=== PATIENT | female | born 1950 | race Caucasian/White ===

== ENCOUNTER 2017-04-21 08:58 | Inpatient (IN) ==
[2017-04-21] MEDS ORDERED: ASPIRIN ONE (09:23)
[2017-04-21] MEDS ORDERED: ASPIRIN PO ONE (09:27)
[2017-04-21 10:16] LABS: MANUAL DIFF NEEDED? NO
[2017-04-21 10:18] LABS: BASO% 0.3 % (0.0-0.8); EOS% 2.6 % (0.0-10.0); HEMATOCRIT 41.7 % (37.0-47.0); IMM GRAN# 0.02 X1000 (0.0-0.04); IMM GRAN% 0.2 % (0.0-0.5); LYMPH# 2.03 X1000 (1.2-3.4); LYMPH% 17.4 % (20.5-51.1); MCHC 33.6 g/dL (33-37); MCV 80.3 FL (81-99); MONO# 0.87 X1000 (0.11-0.59); MONO% 7.4 % (1.7-9.3); MPV 8.6 FL (7.4-10.4); NEUT% 72.1 % (42.2-75.2); PLT 355 X1000 (130-400); RBC 5.19 XMIL (4.2-5.4)
--- NOTE | 2017-04-21 10:29 | Diag Imaging Result Doc PS360 ---
EXAM: CHEST-2 VIEWS INDICATION: CP TECHNIQUE: 2 views COMPARISON: 06/13/2016 FINDINGS: The lungs are grossly clear. There is no discrete pleural fluid collection or pneumothorax. The cardiac silhouette is mildly prominent but stable. IMPRESSION: Mildly prominent cardiac silhouette but no definite acute pathology. Electronically signed by Ben Jaimes 04/21/2017 10:26 AM
[2017-04-21 10:30] LABS: INR 0.99; PROTIME 10.4 Seconds (9.2-11.7); PTT 27.6 Seconds (22.0-36.0)
[2017-04-21 10:32] LABS: AGAP 14; ALKALINE PHOSPHATASE 92 U/L (32-104); BUN 13 mg/dL (8-22); CALCIUM 9.2 mg/dL (8.8-10.2); CHLORIDE 94 mmol/L (98-107); CK PROFILE 32 U/L (24-173); COSMO 278; GOT 14 U/L (10-30); GPT 17 U/L (10-36); MAGNESIUM 1.7 mg/dL (1.5-2.7); POTASSIUM 4.3 mmol/L (3.5-5.1); SODIUM 134 mmol/L (136-145); TCO2 26 mmol/L (25-35); TOTAL BILIRUBIN 0.47 mg/dL (0.20-1.00); TOTAL PROTEIN 7.3 g/dL (6.3-8.3)
[2017-04-21] MEDS ORDERED: NITROGLYCERIN SL PRN (11:17)
[2017-04-21] MEDS ORDERED: MORPHINE IV PRN (11:17)
[2017-04-21] MEDS ORDERED: ZOFRAN IV PRN (12:59)
[2017-04-21] MEDS: NITROGLYCERIN TOP SCH ×2 (13:23→20:03)
[2017-04-21] MEDS: LOVENOX SUBQ SCH (13:39)
--- NOTE | 2017-04-21 17:03 | HISTORY AND PHYSICAL ---
PRIMARY CARE PROVIDER: Dr. Krishna Umana. PRIMARY CARDIOLOGISTS: Dr. Rodriguez. CHIEF COMPLAINT: Chest pain. HISTORY OF PRESENT ILLNESS: Ms. Norwood is a 66-year-old female with a medical history of obesity, diabetes mellitus type 2, hypertension, hypothyroidism, who states that about 6 or 6:30 this morning she woke up and was having midsternal chest pain that actually radiated to the right side and up the right side of her neck that eventually radiated to the left neck and into the jaw. She did have associated nausea and diaphoresis with this. She currently states that the pain is continuous at a 4/5 and feels more like soreness since this morning. She denies any shortness of breath. She also states that about a week ago. She had been treated for a sinus infection and yeast infection. Cardiac enzymes were negative. EKG does not show any ST elevations. Approximately 1 year ago she had presented with same complaints but eventually her cardiac enzymes did elevate and was sent to [facility] and received 2 coronary stents. She states that occasionally she does have this chest pain that comes and goes but not to the point of what it was this morning. She also states that she has been having a lot of insulin adjustments. According to her, her blood glucose goal is 120 but she has not ever been able to get it under 200. The reason for this is that her analytics lead says she has a bleed in the back part of her right eye that he associates with her diabetes. She states she is constantly nauseated and felt like maybe this morning it was because her blood glucose level was low but on check it was 266. Will admit to CICU, do cardiac enzymes, EKGs, and consult cardiology. PAST MEDICAL HISTORY: Coronary artery disease with an SD last year with 2 cardiac stents, falls, seasonal allergies, frequent sinus infections, diabetes mellitus type 2 that is uncontrolled, hypothyroidism, hypertension, cataracts, obstructive sleep apnea but does not wear CPAP. PAST SURGICAL HISTORY: Cardiac stents x2, hysterectomy, cholecystectomy, right knee scope, left hand tendon release, skin cancer removed off the right lip. SOCIAL HISTORY: Denies tobacco, alcohol, or illicit drug use. She states she has never used tobacco. She is retired, , lives at home with her . FAMILY HISTORY: Mother had pelvic cancer, melanoma, and diabetes. Father had lung cancer and hypertension. She had 1 brother with neuroblastoma and hypertension. She had 3 brothers with diabetes mellitus type 2. One brother with an acute SD. One son with diabetes mellitus type 2. REVIEW OF SYSTEMS: Fourteen point review of systems were complete. All were negative except for those mentioned in the above HPI. She has chest soreness and constant nausea. ALLERGIES: Codeine, iodine, and sulfa. HOME MEDICATIONS: Norvasc 10 mg p.o. daily, aspirin 81 mg p.o. daily, Lipitor 40 mg p.o. nightly, carvedilol 6.25 mg p.o. twice daily, vitamin D3 2000 units p.o. daily, cinnamon 500 mg p.o. daily, vitamin B12 1200 mcg p.o. daily, Lasix 40 mg p.o. twice daily, insulin 2 units subcutaneous daily p.r.n., Synthroid 125 mcg p.o. daily, Victoza 1.8 mg subcutaneous daily, Cozaar 100 mg p.o. daily, Effient 10 mg p.o. daily, spironolactone 25 mg. PHYSICAL EXAMINATION: VITAL SIGNS: Temperature is 98 degrees, heart rate 71, respiratory rate 18, blood pressure 155/65, O2 saturation 99% on 2 L nasal cannula, 5 foot 6 inches tall, 251 pounds , BMI is 40.6. GENERAL: Ms. Merary Norwood is a 66-year-old female. She is in no acute distress. She is able to answer questions appropriately. HEENT: Atraumatic, normocephalic. Pupils equal, round, reactive to light. Extraocular movements intact. Mucous membranes are dry. NECK: Trachea midline. CARDIOVASCULAR: S1, S2. Regular rate and rhythm. No rubs, gallops, murmurs. No JVD or carotid bruits noted. No lower extremity edema. She has +2 dorsalis and radial pulses. PULMONARY: Clear to auscultation. Bilateral breath sounds. No accessory muscle use or work of breathing noted. GI: Obese, soft, nontender, nondistended. EXTREMITIES: No lower extremity edema. She moves all extremities equally. NEUROLOGIC: A O x4. SKIN: Warm, dry, intact. LABORATORY DATA: White blood cells 11,000, hemoglobin 14, hematocrit 41, platelet count 355,000. INR 0.99. D-dimer 0.26. Sodium 134, potassium 4.3, BUN 13, creatinine 0.8, glucose 266, magnesium 1.7, bilirubin 0.47, AST 14, ALT 17. CK 32. Troponin less than 0.01. CRP 17.94. ProBNP 36. Albumin is 4.0. IMAGING: Chest x-ray: Mildly prominent cardiac silhouette but no definite acute pathology. ASSESSMENT AND PLAN: 1. Chest pain with a history of myocardial infarction and coronary artery disease. We will do nitroglycerin paste q.6 hours, serial cardiac enzymes daily, EKGs. Consult cardiology given patient's history and how she presented. 2. Diabetes mellitus type 2. We will do pattern blood glucoses and sliding scale insulin. 3. Hypertension. Continue home medications. 4. Hypothyroidism. Continue Synthroid. 5. Deep vein thrombosis prophylaxis. Lovenox. Patient seen and examined by me face to face, all the laboratory, images and vitals signs were reviewed, there is a possibility of acute coronary syndrome since she has DM, hypertension, and history of SD, no chest pain upon palpation on my physical exam, Cardiology will be consulted, will be placed on telemetry and will be admitted for further treatment and close monitoring, I agree with the assessment and plan, Rohit Ramirez MD Dictated by THNAIA Khoury for Rohit Beckford MD cc: THANIA Khoury MD [facility]
[2017-04-21] MEDS: HUMULIN R SUBQ SCH ×2 (17:28→20:04)
--- NOTE | 2017-04-21 18:00 | CONSULTATION ---
DATE OF CONSULTATION: 04/21/2017 CHIEF COMPLAINT: Chest pain. PRIMARY PHYSICIAN: Dr. Krishna Umana. IT INFRASTRUCTURE MANAGER: Dr. Derek Rodriguez. HISTORY: Ms. Norwood is a pleasant 66-year-old female who is known to me. She presented to the emergency room early this morning with complaints of sudden onset of chest pain that woke her up from her sleep at about 6 to 6:30 in the morning. The pain was intense, 9/10 in severity, nonradiating, associated with sweating and nausea. The pain went on for a little while and eventually, close to 10 o'clock, she decided to come to the emergency room. She was seen over there. They have done two electrocardiograms. Electrocardiogram is negative for acute ischemia. Two sets of troponin levels are negative. The patient's pain subsided after she was given sublingual nitroglycerin. Her CPK is also negative twice. The patient says that she had just finished 2 days ago a 1-week course of antibiotics for a urinary tract infection and sinus infection as well as Diflucan for the same purpose. She was told that she had a yesterday infection possibly in the urine. The patient says that over the course of months she had minor intermittent chest discomfort, however, nothing like this particular pain. In her mind this pain was exactly the same as what she experienced last year when she suffered a myocardial infarction. PAST MEDICAL HISTORY: Her past history is positive for acute myocardial infarction in May 2016. At that time the patient presented to this hospital with ST elevation in the precordial leads and she was sent to [place] where they found a tight proximal stenosis of the LAD which they successfully stented. The patient since then has been taking Effient and aspirin along with several other medications to optimize her cardiac status. She has been treated with cholesterol lowering medications. The patient was seen at my office last time in October of this year and back then she was generally doing better. She had some complain of puffiness of the legs. We put her on some diuretics and she has improved. Of note, her proBNP level today at the time of presentation was normal. Her BUN and creatinine were also normal. She has a remote history of Sjogren's syndrome. She has diabetes mellitus which is insulin requiring and has been very difficult to optimize. Dr. Umana has been working on it. She is morbidly obese. BMI is 40.6. She has lost 13 pounds since her last visit with me. She has sleep apnea which is obstructive, however, she has not been able to wear the CPAP mask. She has hypothyroidism. PAST SURGICAL HISTORY: Her surgical history is positive for skin cancer that has been removed, hysterectomy, cholecystectomy, left hand surgery, knee arthroscopy. SOCIAL HISTORY: She has 3 children. She is . Never been a smoker. Not a drinker. FAMILY HISTORY: Positive for coronary heart disease. REVIEW OF SYSTEMS: She has been more active lately than last year. She has no chronic pains. She has no issues with significant dyspnea. No palpitations or syncope. Lately she has been having lower abdominal pain since they changed her medications, specifically the insulin. She has not been in the hospital since her last heart attack in May of 2016. Other systems were checked and they were unremarkable. HOME MEDICATIONS: Her home medications at the time of this admission included: 1. Insulin NovoLog 2 units as needed sliding scale. 2. Vitamin D3 daily. 3. Prasugrel 10 mg daily. 4. Losartan 100 mg daily. 5. Synthroid 125 mcg daily. 6. Carvedilol 6.25 twice a day. 7. Aspirin 81 mg daily. 8. Amlodipine 10 mg daily. 9. Spironolactone 25 daily. 10.Victoza 1.8 subcutaneously daily. 11.Atorvastatin 40 mg at bedtime. ALLERGIES: Iodine dye, codeine, and sulfa drugs. PHYSICAL EXAMINATION: Vital signs: Blood pressure is 155/65, temperature 98 degrees, pulse 71,respirations 18. General: She is awake, alert, oriented, obese, in no distress. HEENT: Unremarkable. Chest: Fairly clear to auscultation and percussion. Cardiac: Heart sounds are regular and rhythmic. I do not hear any gallop or murmur. Abdomen: Obese, nontender. No masses or hepatomegaly. Extremities: Show good pulses. No peripheral edema. Neurologic: Follows commands, moves four extremities. LABORATORY DATA: Hemoglobin 14.0, white count 11,680, neutrophils 72%, lymphocytes 17%. Sodium 134, potassium 4.3, glucose 266. IMPRESSION: 1. Patient presenting with sudden onset of chest pain that is reminiscent of previous non Q wave myocardial infarction. Pain has resolved. Thus far there is no indication of acute ischemia on her either by EKG or laboratory work. 2. Single vessel coronary artery disease, proximal stenosis of left anterior descending, successfully stented in May of 2016. 3. Morbid obesity. 4. Diabetes mellitus type 2, insulin requiring. 5. History of hypertension. 6. Sleep apnea syndrome. 7. Recent urinary tract infection. 8. Recent yeast infection. RECOMMENDATIONS: I would suggest to obtain a followup echocardiogram and myocardial perfusion stress test. Based on those results, we will give further recommendations. At this time the patient is asymptomatic. She is feeling back to her normal self. Will follow her along. Thank you again for the opportunity to participate in her evaluation. cc: Derek Rodriguez MD
[2017-04-21] MEDS: LIPITOR PO SCH (20:03)
[2017-04-21] MEDS: LASIX PO SCH (20:03)
[2017-04-21] MEDS: COREG PO SCH (20:03)
[2017-04-21] MEDS ORDERED: COREG PO SCH (21:00)
[2017-04-21 21:51] LABS: URINE MICRO REVIEW NEEDED? NO; URINE SOURCE VOIDED
[2017-04-21 21:55] LABS: BILIRUBIN URINE NEGATIVE (NEGATIVE); BLOOD URINE NEGATIVE (NEGATIVE); COLOR YELLOW; GLUCOSE URINE 300 mg/dL (NEGATIVE); LEUKOCYTES URINE NEGATIVE (NEGATIVE); NITRITE URINE NEGATIVE (NEGATIVE); PH URINE 5.5; PROTEIN URINE TRACE mg/dL (NEGATIVE); SP GRAVITY URINE 1.007; TURBIDITY URINE CLEAR (CLEAR); UR EPITHELIAL CELLS <10 /HPF (<10); URINE BACTERIA NEGATIVE /HPF; URINE RBC <10 /HPF (<10); URINE WBC <10 /HPF (<10); UROBILINOGEN URINE NORMAL (NORMAL)
[2017-04-22] MEDS: NITROGLYCERIN TOP SCH ×4 (00:50→22:15)
[2017-04-22] MEDS: LOVENOX SUBQ SCH ×2 (00:50→13:09)
[2017-04-22] MEDS: TYLENOL PO PRN ×2 (00:56→22:12)
[2017-04-22 05:02] LABS: MANUAL DIFF NEEDED? NO
[2017-04-22 05:12] LABS: BASO% 0.3 % (0.0-0.8); EOS# 0.41 X1000 (0.0-0.7); EOS% 3.6 % (0.0-10.0); IMM GRAN# 0.03 X1000 (0.0-0.04); IMM GRAN% 0.3 % (0.0-0.5); LYMPH# 2.95 X1000 (1.2-3.4); LYMPH% 26.1 % (20.5-51.1); MCH 26.7 PG (27-31); MCHC 33.3 g/dL (33-37); MCV 80.2 FL (81-99); MONO# 0.91 X1000 (0.11-0.59); MONO% 8.1 % (1.7-9.3); MPV 8.5 FL (7.4-10.4); NEUT% 61.6 % (42.2-75.2); PLT 338 X1000 (130-400); RBC 4.86 XMIL (4.2-5.4)
[2017-04-22 05:15] LABS: INR 1.07; PROTIME 11.3 Seconds (9.2-11.7)
[2017-04-22 05:20] LABS: HEMOGLOBIN A1C 9.8 % (4.8-6.0)
[2017-04-22 05:24] LABS: ALBUMIN 3.7 g/dL (3.5-5.0); CALCIUM 8.9 mg/dL (8.8-10.2); MAGNESIUM 1.5 mg/dL (1.5-2.7); POTASSIUM 4.2 mmol/L (3.5-5.1); TOTAL BILIRUBIN 0.45 mg/dL (0.20-1.00); TOTAL PROTEIN 6.2 g/dL (6.3-8.3)
[2017-04-22 05:40] LABS: FREE T4 1.71 ng/dL (0.93-1.70)
--- NOTE | 2017-04-22 06:02 | EKG Report ---
Test Performed on : 04/21/2017 09:12:03 AM Test Reason : CP Blood Pressure : / mmHG Vent. Rate : 079 BPM Atrial Rate : 079 BPM P-R Int : 244 ms QRS Dur : 104 ms QT Int : 384 ms P-R-T Axes : 045 -14 019 degrees QTc Int : 440 ms Sinus rhythm. with 1st degree AV block. Otherwise normal ECG When compared with ECG of 14-JUN-2016 07:14, T wave inversion no longer evident in Anterolateral leads Unconfirmed Result
[2017-04-22] MEDS: PRILOSEC PO SCH (06:14)
[2017-04-22] MEDS: SYNTHROID PO SCH (06:14)
[2017-04-22] MEDS: HUMULIN R SUBQ SCH ×4 (06:14→22:13)
--- NOTE | 2017-04-22 07:35 | EKG Report ---
Test Performed on : 04/22/2017 06:52:49 AM Test Reason : CHEST PAIN/H/O STENT Blood Pressure : / mmHG Vent. Rate : 080 BPM Atrial Rate : 080 BPM P-R Int : 240 ms QRS Dur : 102 ms QT Int : 382 ms P-R-T Axes : 044 -21 033 degrees QTc Int : 440 ms Sinus rhythm. with 1st degree AV block. Otherwise normal ECG When compared with ECG of 21-APR-2017 09:12, (Unconfirmed) No significant change was found Confirmed by Cyrus JENKINS, Gaston Ayoub ([id number]) on 04/22/2017 5:00:37 PM
--- NOTE | 2017-04-22 07:44 | PROGRESS NOTE ---
DATE: 04/22/2017 CHIEF COMPLAINT: Chest pain. SUBJECTIVE: Ms. Norwood had an uneventful night. Her chest pain has resolved. She is feeling better this morning. She is about to have an echocardiogram. No shortness of breath. No syncope. Telemetry shows no arrhythmia. EKG done this morning shows sinus rhythm with first- degree AV block. No ST-T abnormalities. She has had a total of 4 troponin levels. All of them are negative. OBJECTIVE: Vital signs: Blood pressure 116/53. Temperature 98.1. Pulse 77. Respirations 16. General: The patient is obese, awake, alert, oriented, in no distress. HEENT: Unremarkable. Chest: Clear to auscultation and percussion. Cardiac: Heart sounds regular and rhythmic. No gallop or murmur. Abdomen: Obese, nontender. Extremities: Show good pulses. No edema. Neurologic: Follows commands. Moves four extremities. LABORATORY DATA: Hemoglobin 13.0, white count 11,300. C reactive protein is elevated slightly at 16.31. Hemoglobin A1c is elevated at 9.8, indicating poor control of diabetes. Her cholesterol level is actually good. It is 84. LDL is 36. HDL is 24. TSH is 1.74. Free T4 is minimally elevated at 1.71. Her proBNP was normal. IMPRESSION: 1. Patient who presented with chest pain that is somewhat atypical. This started after finishing a course of antibiotics and Diflucan for some sort of sinus infection and yeast infection. 2. History of myocardial infarction in May of 2016, non Q wave, with stent to LAD. 3. Morbid obesity. 4. Diabetes mellitus type 2. 5. Hypertension. 6. Hyperlipidemia. 7. Hypothyroidism. RECOMMENDATIONS: We will send the patient today for a stress test. Echocardiogram is being performed. Further advice will be forthcoming. Thank you for the opportunity to participate in her evaluation. cc: Derek Rodriguez MD
[2017-04-22] MEDS ORDERED: LEXISCAN ONE (08:52)
[2017-04-22] MEDS ORDERED: ALDACTONE PO SCH (09:00)
[2017-04-22] MEDS: PATIENT'S OWN MED PO SCH (11:15)
[2017-04-22] MEDS: COZAAR PO SCH (11:17)
[2017-04-22] MEDS: EFFIENT PO SCH (11:17)
[2017-04-22] MEDS: ASPIRIN PO SCH (11:17)
[2017-04-22] MEDS: VITAMIN B-12 PO SCH (11:18)
[2017-04-22] MEDS: VITAMIN D PO SCH (11:18)
[2017-04-22] MEDS: NORVASC PO SCH (11:18)
[2017-04-22] MEDS: VICTOZA SUBQ SCH (11:19)
[2017-04-22] MEDS: LASIX PO SCH ×2 (11:19→22:18)
[2017-04-22] MEDS: COREG PO SCH ×2 (11:19→22:16)
[2017-04-22] MEDS: CARAFATE LIQUID PO SCH ×3 (11:25→22:14)
--- NOTE | 2017-04-22 13:05 | ECHO REPORT ---
ORDER DATE: 04/22/2017 ECHOCARDIOGRAPHIC MEASUREMENTS: 1. Interventricular septum 1.0. 2. Left ventricular posterior wall 1.1. 3. Diastolic diameter 5.2. 4. Left atrium 4.0. 5. Aorta 3.6. 6. Technically suboptimal study. Poor acoustic window. 7. Normal left ventricular cavity size. Estimated ejection fraction of 65%. 8. Aortic valve leaflets trileaflet. 9. Pulmonic valve not well visualized. 10. Mitral valve was normal. 11. Tricuspid valve was normal. 12. Peak velocity across the aortic valve less than 2 m/sec. 13. There is no aortic stenosis or regurgitation. 14. There is mild mitral regurgitation. 15. Mild tricuspid regurgitation. 16. Peak velocity across the tricuspid valve was 1.3 m/sec. 17. Anterior echo-free space suggestive of pericardial fat pad was noted. There is no obvious pericardial effusion or obvious intracardiac mass or thrombus seen. cc: MD Derek Armendariz MD
[2017-04-22] MEDS: LANTUS SUBQ SCH (13:08)
[2017-04-22] MEDS ORDERED: INSULIN PEN NEEDLES ONE (13:08)
--- NOTE | 2017-04-22 14:44 | Diag Imaging Result Document ---
PROCEDURE NAME: MYOCARDIAL PERF SCAN, STR/REST - 04/22/2017 DESCRIPTION OF PROCEDURE: Lexiscan was infused per standard protocol. There was no chest pain. Baseline electrocardiogram revealed normal sinus rhythm. Low voltage complex first degree AV block. There was no chest pain. Stress electrocardiogram was negative for ischemia. Then 15.5 mCi of Cardiolite was injected for the rest phase, and 45.8 mCi of Cardiolite was injected for the stress phase. Gated SPECT images were obtained in standard views. Images revealed significant chest wall attenuation. There is no evidence of ischemia. There is low grade small size fixed defect in the left ventricular anteroseptal region, small size. This is probably secondary to attenuation defect, low probability of scar. Left ventricular ejection fraction is 69%. There is normal wall motion. CONCLUSIONS: 1. No chest pain. 2. Negative Lexiscan stress electrocardiogram. 3. Myocardial perfusion images revealed no evidence of ischemia. 4. There is a small size low grade fixed defect in the anteroseptal wall which is localized small size with significant chest wall attenuation and normal wall motion. This is likely to represent attenuation defect. Low probability of scar. 5. Left ventricular ejection fraction is 69%. cc: MD Derek Armendariz MD
[2017-04-22] MEDS: LIPITOR PO SCH (22:16)
[2017-04-23] MEDS: CARAFATE LIQUID PO SCH ×2 (02:37→09:21)
[2017-04-23] MEDS: LOVENOX SUBQ SCH (02:37)
[2017-04-23] MEDS: NITROGLYCERIN TOP SCH ×2 (02:37→09:22)
[2017-04-23] MEDS: SYNTHROID PO SCH (06:15)
[2017-04-23] MEDS: HUMULIN R SUBQ SCH ×2 (06:16→12:03)
[2017-04-23] MEDS: PRILOSEC PO SCH (06:16)
[2017-04-23 08:32] VITALS: BP 128/53
[2017-04-23] MEDS: LASIX PO SCH (09:20)
[2017-04-23] MEDS: COZAAR PO SCH (09:21)
[2017-04-23] MEDS: VITAMIN D PO SCH (09:21)
[2017-04-23] MEDS: COREG PO SCH (09:21)
[2017-04-23] MEDS: EFFIENT PO SCH (09:21)
[2017-04-23] MEDS: VITAMIN B-12 PO SCH (09:21)
[2017-04-23] MEDS: ASPIRIN PO SCH (09:21)
[2017-04-23] MEDS: LANTUS SUBQ SCH (09:22)
[2017-04-23] MEDS: NORVASC PO SCH (09:22)
[2017-04-23] MEDS: VICTOZA SUBQ SCH (09:23)
[2017-04-23] MEDS: PATIENT'S OWN MED PO SCH (09:23)
--- NOTE | 2017-04-23 11:34 | PROGRESS NOTE ---
DATE: 04/23/2017 CHIEF COMPLAINT: Chest pain. SUBJECTIVE: Ms. Norwood had an uneventful night. We reviewed her stress test yesterday. It basically showed no evidence of any inducible ischemia. She has a tiny anteroseptal defect, probably attenuation artifact versus tiny scar. Ejection fraction is 69%. A 2D echocardiogram which was also done yesterday showed normal left ventricular systolic function. No significant valvular abnormality. Her cardiac enzymes were all negative. Her lipid panel showed total cholesterol of 84, LDL is 36, HDL is 24, triglycerides 239. She had a slight elevation of C- reactive protein. OBJECTIVE: Today blood pressure is 134/43, temperature 98.4, pulse 73, respirations 21. She is awake, alert and oriented, no distress. HEENT is unremarkable. Chest: Clear to auscultation and percussion. Heart sounds are regular and rhythmic. No gallop or murmur. Abdomen: Obese, nontender. Extremities showed no edema. Neurologic: Follows commands. Moves all 4 extremities. IMPRESSION: 1. The patient presented with chest pain, somewhat atypical. She thought is was reminiscent of her non-Q-wave [place]; however, her cardiac testing is all negative. At this time, there are no EKG changes, no perfusion abnormalities to suspect ischemia. No wall motion abnormality on the echocardiogram. 2. The patient probably has gastroesophagitis from recent course of antibiotics and Diflucan. 3. Obesity. 4. Sleep apnea. 5. Diabetes mellitus. RECOMMENDATIONS: At this point in time, I think the patient may be discharged with instructions to continue to take her usual medications. I would add sucralfate to her regimen to protect the esophagus and stomach. I will arrange for a followup with me in 1 month. Thank you for the opportunity to participate in her evaluation. cc: Derek Rodriguez MD
--- NOTE | 2017-04-26 12:09 | DISCHARGE SUMMARY ---
ADMISSION DATE: 04/21/2017 DISCHARGE DATE: 04/23/2017 FINAL DISCHARGE DIAGNOSES: 1. Atypical chest pain. 2. Gastroesophageal reflux disease. 3. Morbid obesity. 4. Hypertension. 5. Coronary artery disease. 6. History of myocardial infarction. 7. Hypothyroidism. 8. Obstructive sleep apnea. CONSULTATIONS REQUESTED DURING THIS HOSPITAL STAY: Cardiology consultation with Dr. Rodriguez. HOSPITAL COURSE: Ms. Norwood is a 66-year-old female with a history of multiple medical problems, who presented to the ER with a chief complaint of chest pain. Given the patient's cardiac history, she was admitted to the hospitalist service, and cardiology was consulted. Serial troponins were done, which were noted to be negative. Also a 2-dimensional echocardiogram was done that was noted to be unremarkable. The patient also had a myocardial perfusion scan done that was unremarkable. It was thought that the patient's chest pain was secondary to reflux, and the patient was given a prescription for Carafate and Protonix. The patient was noted to have poorly-controlled diabetes and was started on Lantus 20 units twice a day. The patient continued to improve clinically and was cleared for discharge home. DISCHARGE MEDICATIONS: 1. Lantus 20 units subcutaneous twice a day. 2. Carafate 1 g p.o. every 6 hours. 3. Omeprazole 40 mg p.o. daily. 4. Aspirin 81 mg p.o. daily. 5. Norvasc 10 mg p.o. daily. 6. Losartan 100 mg p.o. daily. 7. Synthroid 125 mcg p.o. daily. 8. Vitamin B12 1200 mcg oral daily. 9. Vitamin D3 one capsule oral daily. 10. NovoLog sliding scale. 11. Lasix 40 mg p.o. twice a day. 12. Lipitor 40 mg p.o. at bedtime. 13. Coreg 6.25 mg p.o. twice a day. 14. Effient 10 mg p.o. daily. 15. Aldactone 25 mg p.o. daily. DISCHARGE DIET: 1800 ADA diet, low-sodium diet. ACTIVITY: As tolerated. FOLLOWUP INSTRUCTIONS: The patient has been advised to follow up with Dr. Pool in 1-2 weeks. cc: MD Krishna De Los Santos DO
--- NOTE | 2017-05-10 13:31 | PROVIDER DOCUMENTATION ---
This chart was entered by Ileana Singleton Scribe, acting as scribe for Luis Manuel Maynard MD. HPI-Chest Pain - General Chief Complaint: Chest Pain Stated Complaint: CP, NAUSEA Time Seen by Provider: 04/21/17 09:25 Source: patient Allergies/Adverse Reactions: Patient Allergies Allergy/AdvReac Type Severity Reaction Status Date / Time codeine AdvReac Unknown Verified 04/21/17 09:40 iodine AdvReac Unknown Verified 04/21/17 09:40 Sulfa (Sulfonamide AdvReac Unknown Verified 04/21/17 09:40 Antibiotics) Home Medications: Home Medication List Medication Instructions Recorded Confirmed Last Taken Type Amlodipine Besylate [Norvasc] 10 mg PO DAILY 06/13/16 04/21/17 04/20/17 History Aspirin 81 mg PO DAILY 06/13/16 04/21/17 04/20/17 History Levothyroxine [Synthroid] 125 microgm PO DAILY 06/13/16 04/21/17 04/20/17 History Losartan Potassium [Cozaar] 100 mg PO DAILY 06/13/16 04/21/17 04/21/17 History ATORVAstatin [Lipitor] 40 mg PO QHS 08/10/16 04/21/17 04/20/17 History Carvedilol 6.25 mg PO BID 08/10/16 04/21/17 04/21/17 History Cholecalciferol (Vitamin D3) 1 cap PO DAILY 08/10/16 04/21/17 Unknown History [D3-2000] Cinnamon Bark [Cinnamon] 1 cap PO DAILY 08/10/16 04/21/17 Unknown History Cyanocobalamin (Vitamin B-12) 1,200 mcg PO DAILY 08/10/16 04/21/17 Unknown History [Vitamin B12] Furosemide [Lasix] 40 mg PO BID 08/10/16 04/21/17 Unknown History Insulin Aspart [Novolog Flexpen] 2 units SQ DAILY PRN 08/10/16 08/10/16 History Liraglutide [Victoza] 1.8 mg SUBQ DAILY 04/21/17 04/21/17 04/21/17 History Prasugrel [Effient] 10 mg PO DAILY 04/21/17 04/21/17 04/21/17 History Spironolactone 25 mg PO DIRECTED 04/21/17 04/21/17 04/20/17 History - History of Present Illness-CP Nature of Presenting Problem: Pt is a 66 y/o F presents to the ED with chest pain. Pt states chest pain started this am. Pt states pain feels like her last [place]. Pt states having a [place] in 2016 with 2 stents placed. Pt states she takes aspirin and blood thinner. Pt denies SOB. Location: reports: central Chest Pain Radiation: reports: no radiation Quality of Pain: reports: pressure Severity in ED: mild Onset/Duration: this morning Timing: still present Context/Activities at Onset: reports: light activity Modifying Factors: improves with: nothing Associated Symptoms: reports: denies symptoms Nitro Today/Relief: no nitro taken today Aspirin Treatment Today: 81 mg x 1, provided at home Prior Chest Pain/Cardiac Workup: reports: echocardiography, heart attack Similar Symptoms Previously?: No Recently Seen Here or By Another Healthcare Provider: Yes Review of Systems - Adult - REVIEW OF SYSTEMS - ADULT Constitutional: reports: no symptoms reported Eyes: reports: no symptoms reported Ears, Nose, Mouth & Throat: reports: no symptoms reported Cardiovascular: reports: chest pain. denies: heart murmur, irregular heart rate Respiratory: reports: no symptoms reported Gastrointestinal: reports: no symptoms reported Genitourinary: reports: no symptoms reported Musculoskeletal: reports: no symptoms reported Integumentary: reports: no symptoms reported Neurological: reports: no symptoms reported Psychiatric: reports: no symptoms reported Endocrine: reports: no symptoms reported Hematologic/Lymphatic: reports: no symptoms reported Allergic/Immunologic: reports: no symptoms reported All Other Systems: Reviewed and Negative Past History - Adult - PAST MEDICAL HISTORY-ADULT Review of Records: reports: Nursing Assessment Review, Medications Reviewed, Social history reviewed & non-contributory. Major Childhood Illnesses: reports: denies history Cardiovascular: reports: HTN, hyperlipidemia, [place] Respiratory: reports: asthma, sleep apnea Gastrointestinal: reports: GERD Obstetrical/Gynecological: reports: denies history Genitourinary: reports: denies history Musculoskeletal: reports: denies history Neurological: reports: denies history Endocrine/Immune: reports: Diabetes, thyroid disorder Diabetes Type: Type 2 Other Conditions: reports: denies history - PRIOR SURGERIES/PROCEDURES Surgical/Procedure History: reports: cholecystectomy, hysterectomy - IMMUNIZATION STATUS Childhood Immunizations: See Nurse Assessment Flu Vaccine: See Nurse Assessment - FAMILY HISTORY Family History: reviewed, not pertinent - SOCIAL HISTORY Smoking: denies Substance Use: denies Living Situation: family Physical Exam-General - PHYSICAL EXAM-ADULT Initial Vital Signs Reviewed: Yes - CONSTITUTIONAL General Appearance: appears well, alert. negative: lethargic, slow to respond - EYES Eyes: PERRL/EOMI. negative: pale conjunctivae, sunken eyes - HEAD, EARS, NOSE, MOUTH & THROAT HENMT: normocephalic/atraumatic, moist mucous membranes. negative: angioedema, hearing deficit - NECK Neck: normal inspection. negative: lymphadenopathy, tender lateral - RESPIRATORY Respiratory: lungs clear, normal breath sounds, other (chest tenderness with palpation). negative: crackles, rhonchi - CARDIOVASCULAR Cardiovascular: regular rate, rhythm. negative: tachycardia, systolic murmur - GASTROINTESTINAL (ABDOMEN) Abdominal Exam: normal bowel sounds, non tender, soft. negative: guarding, rebound - LYMPHATIC Lymphatic: no adenopathy. negative: enlargement, streaking - MUSCULOSKELETAL Back Exam: normal inspection. negative: ecchymosis, vertebral tenderness Extremity: normal range of motion, normal inspection. negative: deformity, erythema, tenderness - SKIN Integumentary: normal color, normal turgor, warm/dry. negative: diaphoresis, ecchymosis, erythema, laceration(s), rash - NEUROLOGIC Neurologic: grossly normal. negative: aphasia, facial droop - PSYCHIATRIC Psych/Mental Status: normal mood/affect, oriented x 3. negative: paranoid, tearful Progress - PLAN OF CARE/RESULTS Progress/Plan/Lab Results: Vital Signs - 8 hr 04/21/17 09:08 Temperature 98.2 F Pulse Rate 78 Respiratory Rate 20 Blood Pressure 160/68 O2 Sat by Pulse Oximetry 99 Laboratory Results - last 24 hr 04/21/17 04/21/17 04/21/17 09:30 09:30 09:30 WBC 11.68 H RBC 5.19 Hgb 14.0 Hct 41.7 MCV 80.3 L MCH 27.0 MCHC 33.6 RDW Std Deviation 14.1 Plt Count 355 MPV 8.6 Immature Gran % (Auto) 0.2 Neut % (Auto) 72.1 Lymph % (Auto) 17.4 L [place] % (Auto) 7.4 Eos % (Auto) 2.6 Baso % (Auto) 0.3 Immature Gran # (Auto) 0.02 Neut # (Auto) 8.42 H Lymph # (Auto) 2.03 [place] # (Auto) 0.87 H Eos # (Auto) 0.30 Baso # (Auto) 0.04 PT INR PTT (Actin FS) D-Dimer 0.26 Sodium 134 L Potassium 4.3 Chloride 94 L Carbon Dioxide 26 Anion Gap 14 BUN 13 Creatinine 0.8 Estimated GFR/1.73 m2 > 60 BUN/Creatinine Ratio 16 Glucose 266 H Calculated Osmolality 278 Calcium 9.2 Magnesium 1.7 Total Bilirubin 0.47 AST 14 ALT 17 Alkaline Phosphatase 92 Creatine Kinase 32 Troponin T Iyb-D-Oelxlyflpcl Pept Total Protein 7.3 Albumin 4.0 Globulin 3.3 Albumin/Globulin Ratio 1.2 04/21/17 04/21/17 04/21/17 09:30 09:30 09:30 WBC RBC Hgb Hct MCV MCH MCHC RDW Std Deviation Plt Count MPV Immature Gran % (Auto) Neut % (Auto) Lymph % (Auto) [place] % (Auto) Eos % (Auto) Baso % (Auto) Immature Gran # (Auto) Neut # (Auto) Lymph # (Auto) [place] # (Auto) Eos # (Auto) Baso # (Auto) PT 10.4 INR 0.99 PTT (Actin FS) 27.6 D-Dimer Sodium Potassium Chloride Carbon Dioxide Anion Gap BUN Creatinine Estimated GFR/1.73 m2 BUN/Creatinine Ratio Glucose Calculated Osmolality Calcium Magnesium Total Bilirubin AST ALT Alkaline Phosphatase Creatine Kinase Troponin T < 0.010 Xho-Q-Yovwlifcpss Pept 36 Total Protein Albumin Globulin Albumin/Globulin Ratio Orders Category Date Time Status Cardiac Monitoring DIRECTED Care 04/21/17 09:53 Active Saline Loc NOW Care 04/21/17 09:53 Active CHEST-2 VIEWS [RAD] Stat Exams 04/21/17 09:53 Completed CBC WITH ELECTRONIC DIFF [HEME] Stat Lab 04/21/17 09:30 Completed CK PROFILE [SP CHEM] Stat Lab 04/21/17 09:30 Completed COMPREHENSIVE METABOLIC PANEL [CHEM] Stat Lab 04/21/17 09:30 Completed D-DIMER [CHEM] Stat Lab 04/21/17 09:30 Completed MAGNESIUM [CHEM] Stat Lab 04/21/17 09:30 Completed PRO B-NATRIURETIC PEPTIDE Stat Lab 04/21/17 09:30 Completed PROTIME WITH INR [COAG] Stat Lab 04/21/17 09:30 Completed PTT [COAG] Stat Lab 04/21/17 09:30 Completed TROPONIN T Stat Lab 04/21/17 09:30 Completed Aspirin Med 04/21/17 09:23 Discontinued 243 mg .ROUTE .STK-MED ONE Aspirin Med 04/21/17 09:27 Discontinued 81 mg PO NOW ONE EKG [EKG] Stat Ther 04/21/17 09:53 Ordered Result Diagrams: 04/21/17 09:30 04/21/17 09:30 - EKG 1 Time of EKG reading by physician:: 09:12 EKG Read and Signed by:: Frank Maynard EKG Interpretation (*Must complete 3 of following elements*): Abnormal Rate: 79 Rhythm: sinus rhythm with 1st degree AV block Comments: otherwise normal ECG - XRAY 1 XRAY Study: Chest Impression: Abnormal (Mildly prominent cardiac silhouette but no definite acute pathology) - CONSULTS/PCP/HOSPITALIST Notification #1 *Consult/PCP/Hospitalist*: THANIA Parker for Hospitalist Time Discussed: 10:59 (Dr. Morgan accepted PT ) Reason/Comments: Dr. Maynard consulted with LUIS ENRIQUE Parker about PT Consult Disposition: Admit Departure - Departure Date of Disposition Decision: 04/21/17 Time of Disposition Decision: 10:59 DIAGNOSIS: Unstable angina Disposition: ADMITTED INPATIENT 09 Certified Medical Emergency: Emergent Condition: Stable Referrals and Follow-Ups: Krishna Umana DO [Primary Care Provider] - - Critical Care Note This patient required my direct & personal management of CC.: No Attestation - Physician/ WALTER Attestation Patient care was provided by Advanced Practice Provider:: No The physician spent face to face time with patient:: Yes Advanced Practice Provider documentation review:: Supervising physician onsite and consulted in the evaluation and care of this patient. The physician did have a face to face encounter with the patient. This chart was documented by the indicated scribe, (Ileana Singleton Scribe) and accurately reflects the services I performed and decisions made by Caesar sol Tom-Meka M., MD, as attested by the provider's signature.
== END 2017-04-23 12:10 | disposition home or self-care (01) ==
LOC: ED 08:58 → SUATTDRO 08:59 → 3S 08:59 → 3N 04-22 18:40
PROVIDERS: ATTEND Internal Medicine

== ENCOUNTER 2018-10-01 14:20 | Inpatient (IN) ==
[2018-10-01] MEDS ORDERED: VANCOMYCIN IV PER PHARMACY MISC SCH (18:00)
[2018-10-01] MEDS ORDERED: D50W SYRINGE IV PRN (18:00)
[2018-10-01] MEDS ORDERED: TYLENOL PO PRN (18:44)
--- NOTE | 2018-10-01 19:00 | Diag Imaging Result Doc PS360 ---
CT ABDOMEN/PELVIS W/O CONTRAST - 10/01/2018 INDICATION: abd.pain COMPARISON: 07/19/2017 FINDINGS: There is hazy atelectasis or edema in the lung bases, nonspecific. Heart size is normal with no pericardial effusion. There is some body wall edema. There are cholecystectomy clips. No radiodense renal stones. No hydronephrosis or hydroureter. No bowel obstruction or inflammation. There has been a slight increase in size of a simple appearing cyst at the left adnexal region. This measures 4.6 cm in maximum length, previously measuring 3.1 cm. Urinary bladder and rectum are normal. There are moderate degenerative changes of the spine. No acute or suspicious bony lesion. IMPRESSION: 1. Hazy atelectasis or pulmonary edema in the lung bases. 2. Increase in size of a simple appearing left adnexal cyst now measuring 4.6 cm. This exam was performed using automated exposure control, adjustment of mA or kV according to patient size, and/or use of iterative reconstruction technique Electronically signed by Adalid Correa 10/01/2018 6:58 PM
[2018-10-01 19:03] LABS: URINE SOURCE CLEAN CATCH
[2018-10-01 19:08] LABS: BILIRUBIN URINE NEGATIVE (NEGATIVE); BLOOD URINE TRACE (NEGATIVE); COLOR YELLOW; GLUCOSE URINE NEGATIVE (NEGATIVE); KETONE URINE NEGATIVE (NEGATIVE); LEUKOCYTES URINE NEGATIVE (NEGATIVE); NITRITE URINE NEGATIVE (NEGATIVE); PH URINE 6.5; PROTEIN URINE 600 mg/dL (NEGATIVE); SP GRAVITY URINE 1.012; TURBIDITY URINE CLEAR (CLEAR); UR EPITHELIAL CELLS <10 /HPF (<10); URINE BACTERIA NEGATIVE /HPF; URINE RBC <10 /HPF (<10); URINE WBC <10 /HPF (<10); UROBILINOGEN URINE NORMAL (NORMAL)
--- NOTE | 2018-10-01 19:08 | Diag Imaging Result Doc PS360 ---
CHEST-2 VIEWS - 10/01/2018 INDICATION: SOB COMPARISON: 08/06/2018 FINDINGS: Stable linear atelectasis in the left lung base. No infiltrates or edema. Heart size and pulmonary vascularity are top normal. IMPRESSION: Minimal atelectasis in the left lung base. Electronically signed by Adalid Correa 10/01/2018 7:06 PM
[2018-10-01 19:14] LABS: ALLEN TEST YES; BE 5.1 mmoll (-3.0-3.0); BLOOD TYPE ARTERIAL; HCO3-(ACT) 28.9 mmoll (20.0-26.0); METHB 0.7 % (0.0-1.5); MODALITY ROOM AIR; O2(CT) 16.7 mL/dL (15.0-23.0); O2HB 95.9 % (95.0-99.0); PCO2(98.6) 44 mmHg (35-45); PO2(98.6) 81 mmHg (60-100); SAMPLE BLOOD; SAO2 98.3 % (95.0-100.0); THB 12.3 g/dL (11.5-17.4); pH(98.6) 7.44 (7.35-7.45)
[2018-10-01 19:34] LABS: BASO# 0.03 X1000 (0.0-0.2); BASO% 0.2 % (0.0-0.8); EOS# 0.22 X1000 (0.0-0.7); EOS% 1.8 % (0.0-10.0); IMM GRAN# 0.04 X1000 (0.0-0.04); IMM GRAN% 0.3 % (0.0-0.5); LYMPH# 1.39 X1000 (1.2-3.4); LYMPH% 11.4 % (20.5-51.1); MCH 24.3 PG (27-31); MCHC 31.6 g/dL (33-37); MCV 77.1 FL (81-99); MONO# 0.99 X1000 (0.11-0.59); MONO% 8.1 % (1.7-9.3); MPV 8.5 FL (7.4-10.4); NEUT# 9.52 X1000 (1.4-6.5); NEUT% 78.2 % (42.2-75.2); PLT 363 X1000 (130-400); RBC 4.93 XMIL (4.2-5.4); RDW 15.5 % (11.5-14.5); WBC 12.19 X1000 (4.8-10.8)
[2018-10-01 19:41] LABS: INR 0.98; PROTIME 13.8 Seconds (11.0-16.0)
[2018-10-01 19:42] LABS: PTT 33.5 Seconds (22.3-41.8)
[2018-10-01] MEDS ORDERED: VANCOMYCIN 2.5 GM in NS 500 ML IV ONE (20:00)
[2018-10-01 20:17] LABS: HEMOGLOBIN A1C 8.2 % (4.8-6.0)
[2018-10-01 20:20] LABS: AGAP 12; ALB/GLOB RATIO 0.9; ALBUMIN 3.1 g/dL (3.5-5.0); ALKALINE PHOSPHATASE 89 U/L (32-104); AMYLASE 22 U/L (20-200); BUN 18 mg/dL (8-22); CALCIUM 9.2 mg/dL (8.8-10.2); CHLORIDE 100 mmol/L (98-107); CK PROFILE 31 U/L (24-173); COSMO 282; CREATININE 0.8 mg/dL (0.5-0.9); ESTIMATED GFR > 60; GLUCOSE 152 mg/dL (70-104); GOT 9 U/L (10-30); GPT 11 U/L (10-36); LIPASE 13 U/L (13-60); POTASSIUM 4.1 mmol/L (3.5-5.1); SODIUM 139 mmol/L (136-145); TCO2 27 mmol/L (25-35); TOTAL BILIRUBIN 0.24 mg/dL (0.20-1.00); TOTAL PROTEIN 6.7 g/dL (6.3-8.3)
[2018-10-01] MEDS: ZOSYN 3.375 GM in NS 50 ML IV SCH (20:41)
[2018-10-01] MEDS: LASIX IV SCH (20:47)
[2018-10-01] MEDS: COREG PO SCH (20:47)
[2018-10-01] MEDS ORDERED: BASAGLAR SUBQ SCH (21:00)
[2018-10-01] MEDS: BASAGLAR SUBQ SCH (21:04)
[2018-10-01] MEDS: PROTONIX IV SCH (21:04)
--- NOTE | 2018-10-01 21:05 | HISTORY AND PHYSICAL ---
CHIEF COMPLAINT: Confusion, chest congestion, cough, not responding to outpatient treatment. HISTORY OF PRESENT ILLNESS: Ms. Norwood is a 67-year-old white female patient, not doing well lately. According to patient and daughter, the patient is sick for over a week with chest congestion, cough, scanty sputum production, sinus drainage, sinus pressure, fluctuating blood sugar. I evaluated the patient a few days ago in the office. I did blood work. The patient had leukocytosis. I started patient on doxycycline. The patient was tolerating medication well, but patient was not getting better. She did have a headache, sinus congestion, chest congestion, cough with expectoration. The patient was getting short of breath very easily. The patient did have swelling of the legs and abdominal wall. She was getting short of breath easily. Daughter was concerned. The patient did have periods where she was more confused and disoriented. According to daughter, her motor skill was getting weaker. The patient had a few falls at home. They were questioning whether the patient is taking her medicine regularly or not. The patient was brought back to my office. The patient was getting frustrated at times. I evaluated the patient. The patient had a hard time getting onto examination table. Her blood sugar was fluctuating. No diarrhea. The patient did have polyuria, polydipsia. She had a hard time controlling her bladder, unquantified weight gain. No heat or cold intolerance. As patient was not responding to outpatient treatment, the patient had increasing confusion and weakness, increasing abdominal and leg swelling, I decided to admit the patient for further care. The patient did have a dull headache. No typical chest pain. At times, orthopnea. No PND. ALLERGIES: Codeine, iodine and sulfa. HOME MEDICATIONS: Include: Coreg, aspirin, vitamin D, Cymbalta, Lasix, Lantus 50 units twice a day, Humalog, patient was getting 27 units 3 times a day before meals, Synthroid, losartan, potassium, Effient. She was taking doxycycline. PAST MEDICAL HISTORY: Coronary artery disease. The patient had a stent. Hypertension, hyperlipidemia, morbid obesity, hypothyroidism, gastritis and reflux disease, vitamin D deficiency, situational depression, recurrent sinusitis, osteoarthritis, sleep apnea. The patient had history of cyst in her pelvis. PERSONAL HISTORY: . Lives with the family. Nonsmoker denied alcohol or substance abuse. FAMILY HISTORY: Noncontributory. REVIEW OF SYSTEMS: As per HPI. PAST SURGICAL HISTORY: The patient had a hysterectomy, cholecystectomy, right knee arthroscopy, cardiac stent, skin cancer removed from the right hip and right hand tendon release. PHYSICAL EXAMINATION: GENERAL: Elderly white female patient, morbidly obese, in mild distress. VITAL SIGNS: Blood pressure 195/61, pulse 81, respiration 20, temperature 97.9. SKIN: Normal turgor. No rash or petechiae. HEENT: Head atraumatic, normocephalic. [place] conjunctivae. Anicteric sclerae. Extraocular muscle movement normal. Fundus cannot be penetrated. Good oral hygiene. No tonsillopharyngeal congestion or exudate. Ears and nose benign. NECK: Supple. No JVD, thyromegaly or lymphadenopathy. CHEST: Bilateral good air entry present. Few basal crepitations. No rales. CARDIOVASCULAR: S1 and S2 heard. No gallop or thrill. ABDOMEN: Soft, globular. Bowel sounds present. The patient does have swelling of the abdominal wall. EXTREMITIES: No cyanosis, clubbing. Bilateral leg swelling. TELECOMMUNICATION ENGINEER: Alert, awake. Able to move all 4 limbs. Crepitation both the knee joints. Vague tenderness lumbosacral spine. LABORATORY DATA: Revealed leukocytosis with left shift. Hemoglobin 12, hematocrit 38, WBC count 12.19, platelet count was 363,000. PT 13.8, INR was 0.98, PTT was 33.5. Blood gas: pH 7.44, pCO2 44, PO2 81. This was done on room air. Urinalysis results which did reveal proteinuria. The patient had a chest x-ray done which revealed minimal atelectasis in the lower left lung base. CT scan of the abdomen and pelvis without contrast has atelectasis or pulmonary edema in the lung bases. Increase in size of a simple appearing left adnexal cyst measuring 4.6 cm. CONSIDERATION: 1. Acute bronchitis/sinusitis not responding to outpatient treatment. 2. Diabetes mellitus, poorly controlled. 3. Hypertension. 4. Hyperlipidemia. 5. Osteoarthritis. 6. Swelling of the abdominal wall and leg hypothyroidism. 7. Osteoarthritis. 8. Possible pneumonia. 9. Gastritis. 10. Reflux disease. PLAN: Plan is to admit the patient. Close observation. IV antibiotics. Diuretics. Chest x- ray, blood work and CT scan results reviewed. DVT and GI prophylaxis. Overall plan discussed with the patient and daughter. They are in agreement. Fall precaution. Continue CPAP for sleep apnea. cc: Oskar Brothers MD
[2018-10-01] MEDS: HUMALOG SUBQ SCH (21:24)
[2018-10-02] MEDS: ZOSYN 3.375 GM in NS 50 ML IV SCH ×4 (02:00→19:35)
--- NOTE | 2018-10-02 06:45 | PROGRESS NOTE ---
DATE: 10/02/2018 SUBJECTIVE: Ms. Norwood is doing fair. The patient denied any fever or chills. Shortness of breath is getting better. Mild cough. No expectoration. The patient does have leg swelling. Blood sugar this morning was 71. I already decrease her Lantus insulin. Vague abdominal pain. No diarrhea, blood, or mucus in the stool. No typical chest pain. OBJECTIVE: Vital Signs: Noted. Neck: Supple. No JVD. Lungs: Bilateral good air entry present. Few basal crepitations. Cardiovascular: S1 and S2 heard. Abdomen: Soft, globular. Bowel sounds present. Extremities: No cyanosis or clubbing. The patient does have bilateral leg swelling. MODEL MAKER PLASTER: Alert, awake, answering questions fairly well. DIAGNOSTIC DATA: The patient's laboratory data done yesterday was noted. One ordered for today is pending. Hemoglobin A1c was 8.2. Cardiac isoenzymes and proBNP were negative. CT scan result noted, which did reveal atelectasis or pulmonary edema in the lung base, increase in the size of simple-appearing left adnexal cyst. ASSESSMENT: 1. Acute bronchitis, not responding to outpatient treatment. 2. Sleep apnea. 3. She does have bilateral leg swelling. I am going to get venous Doppler to make sure no DVT. 4. Uncontrolled diabetes mellitus. 5. Gastritis and reflux disease. 6. Cyst in the pelvis. 7. Morbid obesity. 8. Hypothyroidism, on Synthroid. PLAN: We will follow a.m. labs. Continue the rest of the treatment. cc: Oskar Brothers MD
[2018-10-02] MEDS: HUMALOG SUBQ SCH ×6 (06:55→22:36)
[2018-10-02] MEDS: SYNTHROID PO SCH (07:41)
--- NOTE | 2018-10-02 07:41 | EKG Report ---
Test Performed on : 10/01/2018 7:02:31 PM Test Reason : SOB Blood Pressure : / mmHG Vent. Rate : 093 BPM Atrial Rate : 093 BPM P-R Int : 244 ms QRS Dur : 102 ms QT Int : 364 ms P-R-T Axes : 072 004 054 degrees QTc Int : 452 ms Sinus rhythm. with 1st degree AV block. Incomplete right bundle branch block Borderline ECG When compared with ECG of 23-JUN-2018 18:19, OK interval has increased Unconfirmed Result
[2018-10-02] MEDS ORDERED: INSULIN PEN NEEDLES ONE (07:47)
[2018-10-02] MEDS: COREG PO SCH ×2 (08:28→21:17)
[2018-10-02] MEDS: VITAMIN D PO SCH (08:28)
[2018-10-02] MEDS: EFFIENT PO SCH (08:28)
[2018-10-02] MEDS: LASIX IV SCH ×2 (08:28→21:17)
[2018-10-02] MEDS: COZAAR PO SCH (08:28)
[2018-10-02] MEDS: ASPIRIN PO SCH (08:28)
[2018-10-02] MEDS: CYMBALTA PO SCH (08:28)
[2018-10-02] MEDS: KLOR-CON PO SCH (08:28)
[2018-10-02 08:39] LABS: BASO# 0.03 X1000 (0.0-0.2); BASO% 0.2 % (0.0-0.8); EOS# 0.25 X1000 (0.0-0.7); EOS% 2.1 % (0.0-10.0); HEMATOCRIT 39.6 % (37.0-47.0); HEMOGLOBIN 12.3 g/dL (12.0-16.0); IMM GRAN# 0.04 X1000 (0.0-0.04); IMM GRAN% 0.3 % (0.0-0.5); LYMPH# 1.75 X1000 (1.2-3.4); LYMPH% 14.5 % (20.5-51.1); MCH 23.9 PG (27-31); MCHC 31.1 g/dL (33-37); MONO% 8.3 % (1.7-9.3); MPV 8.4 FL (7.4-10.4); NEUT# 8.96 X1000 (1.4-6.5); NEUT% 74.6 % (42.2-75.2); PLT 383 X1000 (130-400); RBC 5.14 XMIL (4.2-5.4); RDW 15.7 % (11.5-14.5); WBC 12.03 X1000 (4.8-10.8)
[2018-10-02] MEDS: BASAGLAR SUBQ SCH ×2 (08:39→21:16)
[2018-10-02] MEDS ORDERED: HUMALOG SUBQ SCH (09:00)
[2018-10-02] MEDS ORDERED: SYNTHROID PO SCH (09:00)
[2018-10-02 09:25] LABS: ALB/GLOB RATIO 0.8; ALBUMIN 3.1 g/dL (3.5-5.0); CALCIUM 9.2 mg/dL (8.8-10.2); POTASSIUM 3.7 mmol/L (3.5-5.1); TOTAL BILIRUBIN 0.2 mg/dL (0.20-1.00)
[2018-10-02] MEDS: PROTONIX IV SCH (19:35)
[2018-10-02] MEDS: VANCOMYCIN 2 GM in NS 500 ML IV SCH (22:35)
[2018-10-03] MEDS: ZOSYN 3.375 GM in NS 50 ML IV SCH ×4 (03:51→21:15)
[2018-10-03] MEDS: HUMALOG SUBQ SCH ×7 (06:19→21:16)
[2018-10-03] MEDS: SYNTHROID PO SCH (06:20)
--- NOTE | 2018-10-03 06:37 | PROGRESS NOTE ---
DATE: 10/03/2018 SUBJECTIVE: Ms. Reagan is doing some better. Still has cough with cream color expectoration, some sinus drainage, dull headache. No high-grade fever or chills. Denied any chest pain or palpitations. No unusual shortness of breath. Denied any nausea or vomiting. Oral intake is fair. The patient has Cole catheter. Abdominal wall and leg swelling improving. The patient had venous Doppler done yesterday. Preliminary report no DVT blood. Sugar doing fair. OBJECTIVE: Vital Signs: Her vital signs noted. Neck: Supple. No JVD. Lungs: Bibasilar crepitations. Occasional wheezing. Heart: S1 and S2 heard. Abdomen: Soft, globular. Bowel sounds present. Abdominal wall swelling improving. Extremities: No cyanosis, clubbing. Patient does have stasis dermatitis. WORKER'S COMPENSATION CLAIMS EXAMINER: Alert, awake, able to move all 4 limbs. Extremities: Crepitation both the knee joints. LABORATORY DATA: Done yesterday noted. I am going to continue IV Lasix, IV antibiotics. Close observation. I am going to repeat CT scan of her sinuses. Add physical therapy for deconditioning, also the nebulizer treatment. Overall plan discussed with the patient and she is in agreement. cc: Oskar Brothers MD
--- NOTE | 2018-10-03 07:35 | Diag Imaging Result Doc PS360 ---
EXAM: CT MAXILLOFACIAL(SINUS) W/O CO 10/03/2018 HISTORY: recurrent sinusitis TECHNIQUE: CT of the paranasal sinuses. COMMENT: The current examination is compared with the previous study of 07/23/2018. There is opacification of the right frontal sinus which was not the case previously. There has been some improvement in the opacification of ethmoid air cells particularly on the left side since the previous study and the sphenoid sinuses are now clear. There is mucosal thickening and some fluid in the right maxillary sinus which is worse than on the previous study. The middle ear cavities are pneumatized and the mastoids are clear. Both infundibula appear to be opacified. This is worse than on the previous study. IMPRESSION: While there has been some improvement with regard to sphenoid and ethmoid sinusitis compared to the previous study, there is now right frontal and maxillary sinusitis which was not previously present. Electronically signed by Jj Recio 10/03/2018 7:32 AM
[2018-10-03] MEDS: VITAMIN D PO SCH (08:15)
[2018-10-03] MEDS: KLOR-CON PO SCH (08:15)
[2018-10-03] MEDS: COZAAR PO SCH (08:15)
[2018-10-03] MEDS: ASPIRIN PO SCH (08:15)
[2018-10-03] MEDS: COREG PO SCH ×2 (08:15→21:18)
[2018-10-03] MEDS: EFFIENT PO SCH (08:15)
[2018-10-03] MEDS: KENALOG 0.1% CREAM TOP SCH ×2 (08:16→21:15)
[2018-10-03] MEDS: BASAGLAR SUBQ SCH ×2 (08:16→21:18)
[2018-10-03] MEDS: LASIX IV SCH ×2 (08:16→21:17)
[2018-10-03] MEDS: CYMBALTA PO SCH (08:16)
[2018-10-03] MEDS: DUONEB (A & A) INH SCH ×3 (11:07→22:23)
--- NOTE | 2018-10-03 15:40 | Extremity Venous Study ---
PROCEDURE NAME: Venous U/S Bilateral Legs - 10/02/2018 REQUESTING PHYSICIAN: Dr. Harden. READING PHYSICIAN: Dr. Koenig. SPECIALTY THERAPIST: Mariza. INDICATION: Leg swelling. FINDINGS: The deep and superficial veins of both lower extremities were imaged throughout their course. They are compressible, patent and without thrombus. INTERPRETATION: No DVT or SVT of either lower extremity. cc: MD Oskar Poole MD
[2018-10-03] MEDS: SODIUM CHLORIDE 0.9% INJ SCH (21:17)
[2018-10-03] MEDS: PROTONIX IV SCH (21:17)
[2018-10-03] MEDS: VANCOMYCIN 2 GM in NS 500 ML IV SCH (21:59)
[2018-10-04] MEDS: ZOSYN 3.375 GM in NS 50 ML IV SCH ×4 (02:09→20:14)
[2018-10-04] MEDS: DUONEB (A & A) INH SCH ×4 (03:34→21:56)
[2018-10-04] MEDS: SYNTHROID PO SCH (06:01)
[2018-10-04] MEDS: HUMALOG SUBQ SCH ×8 (06:01→22:23)
[2018-10-04 06:45] LABS: BASO# 0.04 X1000 (0.0-0.2); BASO% 0.3 % (0.0-0.8); EOS# 0.34 X1000 (0.0-0.7); HEMATOCRIT 37.9 % (37.0-47.0); HEMOGLOBIN 11.7 g/dL (12.0-16.0); IMM GRAN# 0.03 X1000 (0.0-0.04); IMM GRAN% 0.3 % (0.0-0.5); LYMPH# 1.61 X1000 (1.2-3.4); MCH 24.3 PG (27-31); MCHC 30.9 g/dL (33-37); MCV 78.8 FL (81-99); MONO% 9.6 % (1.7-9.3); MPV 8.5 FL (7.4-10.4); NEUT# 8.37 X1000 (1.4-6.5); NEUT% 72.8 % (42.2-75.2); PLT 376 X1000 (130-400); RBC 4.81 XMIL (4.2-5.4); RDW 15.8 % (11.5-14.5); WBC 11.49 X1000 (4.8-10.8)
[2018-10-04 07:08] LABS: ALB/GLOB RATIO 0.9; ALBUMIN 3.1 g/dL (3.5-5.0); CALCIUM 8.5 mg/dL (8.8-10.2); POTASSIUM 4.2 mmol/L (3.5-5.1); TOTAL BILIRUBIN 0.31 mg/dL (0.20-1.00); TOTAL PROTEIN 6.7 g/dL (6.3-8.3)
[2018-10-04] MEDS: COZAAR PO SCH (10:29)
[2018-10-04] MEDS: EFFIENT PO SCH (10:29)
[2018-10-04] MEDS: VITAMIN D PO SCH (10:29)
[2018-10-04] MEDS: CYMBALTA PO SCH (10:29)
[2018-10-04] MEDS: ASPIRIN PO SCH (10:29)
[2018-10-04] MEDS: COREG PO SCH ×2 (10:29→20:15)
[2018-10-04] MEDS: KLOR-CON PO SCH (10:30)
[2018-10-04] MEDS: LASIX IV SCH ×2 (10:30→20:15)
[2018-10-04] MEDS: KENALOG 0.1% CREAM TOP SCH ×2 (10:30→20:16)
[2018-10-04] MEDS: BASAGLAR SUBQ SCH ×2 (10:30→20:15)
--- NOTE | 2018-10-04 12:52 | PROGRESS NOTE ---
DATE: 10/04/2018 Ms. Pendleton is feeling better. She still has heaviness in the sinus area, some shortness of breath. White count is 11.49, hemoglobin 11.7. Electrolytes are normal. Her blood sugar was 188 this morning. The culture studies have been negative. The CT scan in the maxillofacial area report suggests some sinusitis in the sphenoid and ethmoidal area as well as frontal sinusitis. She is on IV vancomycin as well as Pipracil and will continue both. -6 cc: MD Oskar Andrade MD
[2018-10-04] MEDS: SODIUM CHLORIDE 0.9% INJ SCH (20:14)
[2018-10-04] MEDS: PROTONIX IV SCH (20:15)
[2018-10-05] MEDS: VANCOMYCIN 2 GM in NS 500 ML IV SCH ×2 (00:24→22:36)
[2018-10-05] MEDS: ZOSYN 3.375 GM in NS 50 ML IV SCH ×4 (02:58→20:16)
[2018-10-05] MEDS: DUONEB (A & A) INH SCH ×4 (03:46→22:50)
[2018-10-05] MEDS: HUMALOG SUBQ SCH ×8 (06:02→22:53)
[2018-10-05] MEDS: SYNTHROID PO SCH (06:04)
[2018-10-05] MEDS: LASIX IV SCH ×2 (09:46→20:16)
[2018-10-05] MEDS: KLOR-CON PO SCH (09:47)
[2018-10-05] MEDS: CYMBALTA PO SCH (09:47)
[2018-10-05] MEDS: COREG PO SCH ×2 (09:47→20:16)
[2018-10-05] MEDS: ASPIRIN PO SCH (09:47)
[2018-10-05] MEDS: COZAAR PO SCH (09:47)
[2018-10-05] MEDS: VITAMIN D PO SCH (09:47)
[2018-10-05] MEDS: EFFIENT PO SCH (09:47)
[2018-10-05] MEDS: KENALOG 0.1% CREAM TOP SCH ×2 (09:48→21:53)
[2018-10-05] MEDS: BASAGLAR SUBQ SCH ×2 (09:48→21:53)
[2018-10-05] MEDS: PROTONIX IV SCH (20:16)
[2018-10-05] MEDS ORDERED: INSULIN PEN NEEDLES ONE (20:45)
[2018-10-06] MEDS: DUONEB (A & A) INH SCH ×4 (03:52→23:30)
[2018-10-06] MEDS: ZOSYN 3.375 GM in NS 50 ML IV SCH ×4 (03:54→19:22)
--- NOTE | 2018-10-06 04:09 | PROGRESS NOTE ---
DATE: 10/05/2018 SUBJECTIVE: Ms. Norwood's blood sugar is somewhat unstable. She is on a sliding scale as well as Basaglar twice a day. She gets hypoglycemic episodes. Her sinusitis is better. Overall condition is improving. We will continue with the current management on her. -9 cc: MD Oskar Andrade MD
[2018-10-06] MEDS: SYNTHROID PO SCH (06:15)
[2018-10-06] MEDS: HUMALOG SUBQ SCH ×8 (06:15→22:05)
--- NOTE | 2018-10-06 07:03 | PROGRESS NOTE ---
DATE: 10/06/2018 SUBJECTIVE: Ms. Norwood is doing better. Her leg swelling is improving. The patient is ambulating better. No high-grade fever or chills. Blood sugar was staying high. I am going to increase her insulin. No typical chest pain or palpitations. Denied any diarrhea. No unusual headache. The patient does have some sinus congestion. Tolerating diuretics well. The patient's progress over the weekend reviewed. Her blood sugar was much high yesterday. OBJECTIVE: Vital signs: Blood pressure 148/79, pulse 57, respirations 20, temperature 98.4 degrees. SKIN: Dermatitis of the leg improving. Neck: Is supple. No JVD. Lungs: Bilateral good air entry present. Few basal crepitations. CVS: S1 and S2 heard. Abdomen: Soft, globular. Bowel sounds present. PAYROLL ACCOUNTING MANAGER: Alert, awake, able to move all 4 limbs. Leg swelling improved. CONSIDERATION: The patient does have swelling of the abdominal wall. CONSIDERATION: 1. Bronchitis not responding to outpatient treatment. 2. The patient found to have maxillary and frontal sinusitis. 3. Uncontrolled diabetes mellitus. I am going to increase her long-acting insulin to 45 units. 4. The patient does have pelvic cyst which is increasing in size. I am going to get a follow up appointment with Dr. Shearer as an outpatient. 5. Morbid obesity. Encouraged weight reduction and proper diet. 6. Sleep apnea. Will encourage her to use her CPAP. 7. Hypertension doing better. 8. Hyperlipidemia. PLAN: Discontinue Cole catheter today. Continue the rest of the treatment. Close observation. If clinical condition permits and lab data allow,s I am planning to discharge her home this afternoon. cc: Oskar Brothers MD
[2018-10-06 07:54] LABS: BASO# 0.03 X1000 (0.0-0.2); BASO% 0.3 % (0.0-0.8); EOS# 0.33 X1000 (0.0-0.7); EOS% 3.2 % (0.0-10.0); HEMATOCRIT 38.2 % (37.0-47.0); HEMOGLOBIN 11.6 g/dL (12.0-16.0); IMM GRAN# 0.02 X1000 (0.0-0.04); IMM GRAN% 0.2 % (0.0-0.5); LYMPH# 1.68 X1000 (1.2-3.4); LYMPH% 16.4 % (20.5-51.1); MCH 23.9 PG (27-31); MCHC 30.4 g/dL (33-37); MCV 78.8 FL (81-99); MONO# 0.83 X1000 (0.11-0.59); MONO% 8.1 % (1.7-9.3); MPV 8.5 FL (7.4-10.4); NEUT# 7.38 X1000 (1.4-6.5); NEUT% 71.8 % (42.2-75.2); PLT 408 X1000 (130-400); RBC 4.85 XMIL (4.2-5.4); RDW 15.8 % (11.5-14.5); WBC 10.27 X1000 (4.8-10.8)
[2018-10-06 08:07] LABS: ALB/GLOB RATIO 0.9; ALBUMIN 3.3 g/dL (3.5-5.0); CALCIUM 8.5 mg/dL (8.8-10.2); CREATININE 1.1 mg/dL (0.5-0.9); MAGNESIUM 1.7 mg/dL (1.5-2.7); POTASSIUM 4.1 mmol/L (3.5-5.1); TOTAL BILIRUBIN 0.34 mg/dL (0.20-1.00); TOTAL PROTEIN 7.1 g/dL (6.3-8.3)
[2018-10-06] MEDS: COZAAR PO SCH (08:20)
[2018-10-06] MEDS: CYMBALTA PO SCH (08:20)
[2018-10-06] MEDS: VITAMIN D PO SCH (08:20)
[2018-10-06] MEDS: COREG PO SCH ×2 (08:20→20:18)
[2018-10-06] MEDS: EFFIENT PO SCH (08:20)
[2018-10-06] MEDS: ASPIRIN PO SCH (08:21)
[2018-10-06] MEDS: KLOR-CON PO SCH (08:21)
[2018-10-06] MEDS: LASIX IV SCH ×2 (08:21→20:18)
[2018-10-06] MEDS: BASAGLAR SUBQ SCH ×2 (08:23→20:18)
[2018-10-06] MEDS: KENALOG 0.1% CREAM TOP SCH ×2 (08:24→20:18)
--- NOTE | 2018-10-06 09:51 | Diag Imaging Result Doc PS360 ---
CHEST-2 VIEWS - 10/06/2018 INDICATION: hypoxia COMPARISON: 10/01/2018 FINDINGS: Stable cardiomegaly. Stable mild pulmonary vascular congestion. Stable minimal atelectasis or infiltrate at the lateral left lung base. IMPRESSION: No change from prior. Electronically signed by Adalid Correa 10/06/2018 9:48 AM
[2018-10-06] MEDS: PROTONIX IV SCH (20:18)
[2018-10-06] MEDS: VANCOMYCIN 2 GM in NS 500 ML IV SCH (22:05)
[2018-10-07] MEDS: ZOSYN 3.375 GM in NS 50 ML IV SCH ×2 (01:34→08:23)
[2018-10-07] MEDS: DUONEB (A & A) INH SCH (03:35)
[2018-10-07] MEDS: HUMALOG SUBQ SCH (06:23)
[2018-10-07] MEDS: SYNTHROID PO SCH (06:23)
[2018-10-07] MEDS ORDERED: HUMALOG SUBQ SCH (08:00)
[2018-10-07 08:18] VITALS: BP 171/62
[2018-10-07] MEDS: CYMBALTA PO SCH (08:24)
[2018-10-07] MEDS: VITAMIN D PO SCH (08:24)
[2018-10-07] MEDS: KENALOG 0.1% CREAM TOP SCH (08:25)
[2018-10-07] MEDS: ASPIRIN PO SCH (08:25)
[2018-10-07] MEDS: COZAAR PO SCH (08:25)
[2018-10-07] MEDS: EFFIENT PO SCH (08:25)
[2018-10-07] MEDS: COREG PO SCH (08:25)
[2018-10-07] MEDS: KLOR-CON PO SCH (08:25)
[2018-10-07] MEDS ORDERED: BASAGLAR SUBQ SCH (09:00)
[2018-10-07] MEDS ORDERED: LASIX PO SCH (09:00)
--- NOTE | 2018-10-07 09:05 | DISCHARGE SUMMARY ---
ADMISSION DATE: 10/01/2018 DISCHARGE DATE: FINAL DISCHARGE DIAGNOSES: 1. Acute asthmatic bronchitis not responding to outpatient treatment. 2. Severe sinusitis. 3. Sleep apnea. 4. Uncontrolled diabetes mellitus. 5. Panniculitis. 6. Pelvic cyst. 7. Hypertension. 8. Leg swelling. 9. Gastritis and reflux disease. 10. Osteoarthritis. 11. Stasis dermatitis. 12. Situational depression. 13. Coronary artery disease. HISTORY AND HOSPITAL COURSE: Ms Norwood is a 67-year-old white female patient admitted with chest congestion, cough, shortness of breath decreased exercise tolerance, sinus drainage, headache, at times confusion. The patient was not responding to outpatient treatment. The patient was getting confused at times. I evaluated patient in the office, decided to admit her for further care. The patient did have bilateral leg swelling, swelling of the abdominal wall. Patient admitted. She was placed on telemetry. The patient was started on IV Lasix, IV antibiotics. Workup in the hospital did reveal possible panniculitis, significant sinusitis. Her clinical condition gradually improved. CT scan of the maxillofacial sinus did reveal some improvement with regard to sphenoid and ethmoid sinusitis but now right frontal and maxillary sinusitis which was more pronounced. I did CT scan of the abdomen and pelvis which did reveal hazy atelectasis or pulmonary edema in the lung base, increase in the size of the simple appearing left adnexal cyst which was 4.6 cm. The patient's clinical condition improved. Stasis dermatitis treated with Kenalog cream. Patient was ambulating well. Her blood sugar was staying high at times, but it was responding well to the treatment. I am going to discharge patient home today. Will get follow up appointment with ENT, also surgeon, Manfred for followup on her pelvic cyst. Patient is eager to go home. PHYSICAL EXAMINATION: Vital signs: Noted. Neck: Supple. No JVD. Lungs: Bilateral good air entry present. Occasional wheezing Cardiovascular: S1 and S2 heard. Abdomen: Soft, globular. Bowel sounds present. Leg swelling improved. Skin: Stasis dermatitis improving. Central nervous system: Alert, awake, able to move all 4 limbs. DISCHARGE INSTRUCTIONS: Overall, the patient received maximum benefit of hospitalization. Discussed at length with the patient importance of proper diet, control of diabetes without which we will not be able to control infection, take medicine regularly. I am going to get her home health. In case of more distress, call us back or go to the emergency room. Follow up with me within a week. Advised her to take medicine regularly. Monitor blood pressure and Accu-Chek at home. She will start with 20 units of Humalog and then she will gradually increase to her 27 units. She will take Omnicef 300 mg twice a day for 3 weeks. Continue the rest of the treatment. cc: Oskar Brothers MD
== END 2018-10-07 11:08 | disposition home or self-care (01) | DRG 202 ==
LOC: DIRADM 14:20 → 3N 17:12
PROVIDERS: ADMIT Internal Medicine; ATTEND Internal Medicine
CPT/HCPCS: 70486; 71020; 71046; 74176; 80053; 80202; 81001; 82150; 82550; 82805; 82948; 83036; 83690; 83735; 83880; 84484; 85025; 85610; 85730; 87040; 87088; 93005; 93010; 93970; 94640; 94761; 97116; 97162; 97530; A9270; C9113; J1815; J1940; J2543; J3370; J7040; S0164; XXXXX

== ENCOUNTER 2019-07-16 09:08 | Inpatient (IN) ==
--- NOTE | 2019-07-16 09:23 | EKG Report ---
Test Performed on : 07/16/2019 09:16:04 AM Test Reason : CP Blood Pressure : / mmHG Vent. Rate : 104 BPM Atrial Rate : 104 BPM P-R Int : 226 ms QRS Dur : 100 ms QT Int : 344 ms P-R-T Axes : 073 -32 052 degrees QTc Int : 452 ms Sinus tachycardia. with 1st degree AV block. Left axis deviation Pulmonary disease pattern Incomplete right bundle branch block Abnormal ECG When compared with ECG of 01-OCT-2018 19:02, No significant change was found Unconfirmed Result
--- NOTE | 2019-07-16 09:23 | PROVIDER DOCUMENTATION ---
HPI-General Adult - General Stated Complaint: BP AND HEART RATE UP Time Seen by Provider: 07/16/19 09:10 Source: patient Allergies/Adverse Reactions: Patient Allergies Allergy/AdvReac Type Severity Reaction Status Date / Time codeine AdvReac Unknown Verified 05/19/18 14:50 iodine AdvReac Unknown Verified 05/19/18 14:50 Sulfa (Sulfonamide AdvReac Unknown Verified 05/19/18 14:50 Antibiotics) Home Medications: Home Medication List Medication Instructions Recorded Confirmed Last Taken Type Aspirin 81 mg PO DAILY 06/13/16 07/16/19 10/01/18 17:46 History Levothyroxine [Synthroid] 125 microgm PO DAILY 06/13/16 07/16/19 10/01/18 History Prasugrel [Effient] 10 mg PO DAILY 04/21/17 07/16/19 06/23/18 09:00 History Potassium Chloride 10 meq PO DAILY 06/23/18 07/16/19 06/23/18 09:00 History Carvedilol 12.5 mg PO BID #0 06/27/18 07/16/19 10/01/18 Rx Cholecalciferol (Vitamin D3) 1 cap PO DAILY 10/01/18 07/16/19 Unknown History [Vitamin D3] Duloxetine [Cymbalta] 60 mg PO QAM 10/01/18 07/16/19 10/01/18 History Insulin Glargine,Hum.rec.anlog 50 unit SQ BID 10/01/18 07/16/19 Unknown History [Lantus Solostar] Furosemide [Lasix] 40 mg PO BID #60 10/07/18 07/16/19 06/23/18 09:00 Rx Triamcinolone 0.1% Cr [Kenalog 30 gm TOP BID tube 10/07/18 07/16/19 Unknown Rx 0.1% Cream] - History of Present Illness -Gen Adult Nature of Presenting Problems: Pt. is 68 yof that presents with c/o elevated BP and fast HR. Pt. reports she went to her PCP this morning and was sent to the ED. Pt. denies any other complaints. Location of Pain/Injury: reports: none. denies: head, face, mouth, neck, chest, upper extremity, hand(s), abdomen, back, pelvis, genitalia, lower extremity, f eet, upper body, lower body, generalized, other Pain Radiation: reports: no radiation. denies: arm(s), back, buttocks, chest, epigastric, feet, groin, jaw, flank (L), legs (lower), LLQ, LUQ, neck, periumbilical, flank (R), RLQ, RUQ, shoulder(s), scapula, scrotal, sternal no tch, suprapubic, legs (upper), urethral, vaginal, other Quality of Pain: reports: none. denies: aching, burning, pressure, tightness Severity: reports: mild. denies: moderate, severe Onset/Duration: reports: gradual, 1 week ago Timing: reports: still present. denies: improving, intermittent, getting worse Context/Activities at Onset: reports: none. denies: light activity, moderate activity, vigorous activity, recent emotional stress, recent physical stress, recent trauma history, possible bad food, cold exposure, eating, out of country travel, rest, sleep, sexual activity, other Modifying Factors: improves with: nothing Associated Symptoms: reports: chest pain, shortness of breath. denies: denies symptoms, anxiety, arm pain, back/neck pain, constipation, cough, diaphoresis, diarrhea, dizziness, EENT symptoms, fatigue, fever/chills, genitourinary problems, headaches, heartburn, joint pain, loss of appetite, malaise, muscle aches, sinus congestion/drainage, nausea, rash, seizure, sensory/motor loss, pain with inspiration, swelling/mass in abdomen, syncope, vomiting, weakness, trouble walking, other Similar Symptoms Previously?: Yes Recently seen or treated by another doctor?: Yes Review of Systems - Adult - REVIEW OF SYSTEMS - ADULT Constitutional: reports: no symptoms reported Eyes: reports: no symptoms reported Ears, Nose, Mouth & Throat: reports: no symptoms reported Cardiovascular: reports: see HPI, chest pain. denies: orthopnea, palpitations, syncope Respiratory: reports: see HPI, shortness of breath. denies: chronic cough, excessive sputum production, hemoptysis Gastrointestinal: reports: no symptoms reported Genitourinary: reports: no symptoms reported Musculoskeletal: reports: no symptoms reported Integumentary: reports: no symptoms reported Neurological: reports: no symptoms reported Psychiatric: reports: no symptoms reported Past History - Adult - PAST MEDICAL HISTORY-ADULT Review of Records: reports: Old Records Reviewed, Nursing Assessment Review, Medications Reviewed, Social history reviewed & non-contributory. Major Childhood Illnesses: reports: denies history Cardiovascular: reports: HTN Respiratory: reports: asthma, sleep apnea Gastrointestinal: reports: GERD Obstetrical/Gynecological: reports: denies history Genitourinary: reports: denies history Musculoskeletal: reports: denies history Neurological: reports: denies history Endocrine/Immune: reports: Diabetes, thyroid disorder Other Conditions: reports: denies history - PRIOR SURGERIES/PROCEDURES Surgical/Procedure History: reports: cholecystectomy, hysterectomy - IMMUNIZATION STATUS Childhood Immunizations: See Nurse Assessment Flu Vaccine: See Nurse Assessment - FAMILY HISTORY Family History: reviewed, not pertinent - SOCIAL HISTORY Smoking: denies Physical Exam-General - PHYSICAL EXAM-ADULT Initial Vital Signs Reviewed: Yes - CONSTITUTIONAL General Appearance: alert, mild distress, obese. negative: anxious, slow to respond, obtunded, combative - EYES Eyes: PERRL/EOMI, pink conjunctivae - HEAD, EARS, NOSE, MOUTH & THROAT HENMT: normocephalic/atraumatic, moist mucous membranes - NECK Neck: non-tender, full range of motion, supple, normal inspection - RESPIRATORY Respiratory: lungs clear, normal breath sounds - CARDIOVASCULAR Cardiovascular: regular rate, rhythm, tachycardia. negative: extra beats, friction rub, irregularly irregular - GASTROINTESTINAL (ABDOMEN) Abdominal Exam: normal bowel sounds, non tender, soft - LYMPHATIC Lymphatic: no adenopathy - MUSCULOSKELETAL Back Exam: normal inspection, no CVA tenderness, no vertebral tenderness Extremity: normal range of motion, normal inspection. negative: deformity, erythema, swelling, tenderness Peripheral Pulses: radial (R): 2+, radial (L): 2+ - SKIN Integumentary: normal color, normal turgor, warm/dry - NEUROLOGIC Neurologic: grossly normal, no motor/sensory deficits - PSYCHIATRIC Psych/Mental Status: normal mood/affect, normal thought content, normal thought process, oriented x 3. negative: anxious, paranoid, tearful Progress - PLAN OF CARE/RESULTS Progress/Plan/Lab Results: Orders Category Date Time Status Saline Loc NOW Care 07/16/19 09:19 Ordered CHEST-PORTABLE [RAD] Stat Exams 07/16/19 09:19 Ordered CBC WITH ELECTRONIC DIFF [HEME] Stat Lab 07/16/19 09:19 Uncollected CK PROFILE [SP CHEM] Stat Lab 07/16/19 09:19 Uncollected COMPREHENSIVE METABOLIC PANEL [CHEM] Stat Lab 07/16/19 09:19 Uncollected PRO B-NATRIURETIC PEPTIDE Stat Lab 07/16/19 09:19 Ordered TROPONIN T Stat Lab 07/16/19 09:19 Uncollected TSH Stat Lab 07/16/19 09:20 Uncollected URINALYSIS W/POSS RFLX CULT [URINALYSIS] Stat Lab 07/16/19 09:19 Uncollected EKG [EKG] Stat Ther 07/16/19 09:11 Ordered Laboratory Tests 07/16/19 07/16/19 07/16/19 09:48 09:48 09:48 WBC 11.56 H RBC 5.18 Hgb 13.6 Hct 41.5 MCV 80.1 L MCH 26.3 L MCHC 32.8 L RDW Std Deviation 14.7 H Plt Count 346 MPV 8.7 Neut % (Auto) 75.6 H Lymph % (Auto) 13.4 L [place] % (Auto) 8.5 Eos % (Auto) 2.2 Baso % (Auto) 0.3 Neut # (Auto) 8.75 H Lymph # (Auto) 1.55 [place] # (Auto) 0.98 H Eos # (Auto) 0.25 Baso # (Auto) 0.03 Sodium 135 L Potassium 4.8 Chloride 96 L Carbon Dioxide 24 L Anion Gap 15 BUN 25 H Creatinine 1.3 H Estimated GFR/1.73 m2 41 BUN/Creatinine Ratio 19 Glucose 415 H* POC Glucose Calculated Osmolality 292 Calcium 8.7 L Total Bilirubin 0.24 AST 11 ALT 9 L Alkaline Phosphatase 91 Creatine Kinase 38 Troponin T Zix-M-Xlurhzzgfts Pept 77 Total Protein 6.2 L Albumin 3.2 L Globulin 3.0 Albumin/Globulin Ratio 1.1 Lipase TSH Urine Source Urine Color Urine Turbidity Urine pH Ur Specific [place] Urine Protein Ur Glucose (Stick) Ur Ketones (Stick) Urine Blood Urine Nitrite Urine Bilirubin Urobilinogen Dipstick Urine Leukocytes Urine WBC (Auto) Urine RBC (Auto) U Epithel Cells (Auto) Urine Bacteria (Auto) 07/16/19 07/16/19 07/16/19 09:48 09:48 09:48 WBC RBC Hgb Hct MCV MCH MCHC RDW Std Deviation Plt Count MPV Neut % (Auto) Lymph % (Auto) [place] % (Auto) Eos % (Auto) Baso % (Auto) Neut # (Auto) Lymph # (Auto) [place] # (Auto) Eos # (Auto) Baso # (Auto) Sodium Potassium Chloride Carbon Dioxide Anion Gap BUN Creatinine Estimated GFR/1.73 m2 BUN/Creatinine Ratio Glucose POC Glucose Calculated Osmolality Calcium Total Bilirubin AST ALT Alkaline Phosphatase Creatine Kinase Troponin T < 0.010 Osq-A-Rtafxqjgmwv Pept Total Protein Albumin Globulin Albumin/Globulin Ratio Lipase 40 TSH 4.24 H Urine Source Urine Color Urine Turbidity Urine pH Ur Specific [place] Urine Protein Ur Glucose (Stick) Ur Ketones (Stick) Urine Blood Urine Nitrite Urine Bilirubin Urobilinogen Dipstick Urine Leukocytes Urine WBC (Auto) Urine RBC (Auto) U Epithel Cells (Auto) Urine Bacteria (Auto) 07/16/19 07/16/19 10:31 12:10 WBC RBC Hgb Hct MCV MCH MCHC RDW Std Deviation Plt Count MPV Neut % (Auto) Lymph % (Auto) [place] % (Auto) Eos % (Auto) Baso % (Auto) Neut # (Auto) Lymph # (Auto) [place] # (Auto) Eos # (Auto) Baso # (Auto) Sodium Potassium Chloride Carbon Dioxide Anion Gap BUN Creatinine Estimated GFR/1.73 m2 BUN/Creatinine Ratio Glucose POC Glucose 268 H Calculated Osmolality Calcium Total Bilirubin AST ALT Alkaline Phosphatase Creatine Kinase Troponin T Vga-D-Zixbrzrdweu Pept Total Protein Albumin Globulin Albumin/Globulin Ratio Lipase TSH Urine Source CLEAN CATCH Urine Color YELLOW Urine Turbidity HAZY Urine pH 6.0 Ur Specific [place] 1.025 Urine Protein 300 A Ur Glucose (Stick) >1000 A Ur Ketones (Stick) NEGATIVE Urine Blood SMALL A Urine Nitrite NEGATIVE Urine Bilirubin NEGATIVE Urobilinogen Dipstick NORMAL Urine Leukocytes NEGATIVE Urine WBC (Auto) TNTC A Urine RBC (Auto) <10 U Epithel Cells (Auto) <10 Urine Bacteria (Auto) 2+ Discussed results and plan of care with patient. Patient agrees with plan and verbalizes understanding. Result Diagrams: 07/16/19 09:48 07/16/19 09:48 - EKG 1 Time of EKG reading by physician:: 09:17 EKG Read and Signed by:: Scar Augustin EKG Interpretation (*Must complete 3 of following elements*): Abnormal Rate: 104 Rhythm: ST with 1st degree block [place] Interval: normal ST Wave: normal - XRAY 1 XRAY Study: Chest ([facility] - [address], [address], [place] [address] [facility] - [facility] [place] [address] Department of Imaging Patient: TIFFANIE SHEPHERD Date: 07/16/19MR#: [id number] : 1950DM Status: PRE ERAcct#: [id number] Age/Sex: 68/FRoom/Bed: Loc: ED Ordering Physician: Aleida Feldman Family Physician: Oskar Brothers MD Reason for Procedure: CP ___ Signed EXAM: CHEST-PORTABLE HISTORY: CP TECHNIQUE: Single view COMPARISON: 04/01/2019 FINDINGS: The lungs are well expanded. The heart is borderline mildly prominent. The vessels are not distended. There are no infiltrates. No effusion identified. IMPRESSION: Stable exam Electronically signed by Perfecto Slaughter 07/16/2019 9:48 AM 07/16/1948 Interpreting Physician: Perfecto Slaughter MD Dictated Date/Time: 07/16/1947 cc: Aleida Feldman; Oskar Brothers MD) XRAY Interpretation: See note - CT/MRI 1 CT Study: Head ([facility] - [address], [address], [place] [address] [facility] - [address] [place] [address] Department of Imaging Patient: TIFFANIE SHEPHERD Date: 07/16/19MR#: [id number] : 1950DM Status: REG ERAcct#: [id number] Age/Sex: 68/FRoom/Bed: Loc: ED Ordering Physician: Aleida Feldman Family y sician: Oskar Brothers MD Reason for Procedure: Slurred speech Signed EXAM: CT HEAD W/O CONTRAST HISTORY: Slurred speech TECHNIQUE: CT head without contrast COMPARISON: 05/19/2018 FINDINGS: No parenchymal hemorrhage. No epidural or subdural hematoma. No subarachnoid hemorrhage. There are mild chronic microvascular ischemic changes. No mass identified on this noncontrasted exam. No hydrocephalus. No sinus opacification. IMPRESSION: 1.No hemorrhage 2.Mild chronic microvascular ischemic changes This exam was performed using automated exposure control, adjustment of mA or kV according to patient size, and/or use of iterative reconstruction technique. Electronically signed by Perfecto Slaughter 07/16/2019 10:07 AM 07/16/19 1007 Interpreting Physician: Perfecto Slaughter MD Dictated Date/Time: 07/16/19 1005 cc: Aleida Feldman; Oskar Brothers MD) CT Results: See note 2 CT Study: Abdomen, Pelvis ([facility] - [address] [place] [id number] [facility] - [address] [place] [address] Department of Imaging Patient: TIFFANIE SHEPHERD Date: 07/16/19MR#: [id number] : 1ADM [facility] [id number] Age/Sex: 68/FRoom/Bed: Loc: ED Ordering Physician: Aleida Feldman Family Physician: Oskar Brothers MD Reason for Procedure: Right side abd pain Signed EXAM: CT ABDOMEN/PELVIS W/O CONTRAST HISTORY: Right side abd pain TECHNIQUE: CT abdomen and pelvis without contrast COMPARISON: 10/01/2018 FINDINGS: The gallbladder has been removed. The liver is enlarged measuring over 24 cm in AP diameter. No focal hepatic abnormality identified on this noncontrasted exam. Normal spleen and adrenal glands. No inflammation about the pancreas. No renal stones. No hydronephrosis. No aortic aneurysm. Moderate atherosclerosis. No bowel obstruction. No ascites. No inflammation about the cecum. No abscess. The urinary bladder is distended and appears normal. The uterus has been removed. There is a 2.4 x 4.8 cm cyst betwee n the urinary bladder and rectum. This was present on the prior exam. No definite change in size. IMPRESSION: Stable CT of the abdomen and pelvis. This exam was performed using automated exposure control, adjustment of mA or kV according to patient size, and/or use of iterative reconstruction technique. Electronically signed by Perfecto Slaughter 07/16/2019 11:42 AM 07/16/19 1142 Interpreting Physician: Perfecto Slaughter MD Dictated Date/Time: 07/16/19 1138 cc: Aleida Feldman; Oskar Brothers MD) CT Results: See note - CONSULTS/PCP/HOSPITALIST Notification #1 *Consult/PCP/Hospitalist*: Dr. Brothers Time Discussed: 12:06 Reason/Comments: Consult Consult Disposition: Admit #2 Consult: Dr. Carney Reason/Comments: Consult Consult Disposition: other (Had not called back at time of chart close out.) Departure - Departure Date of Disposition Decision: 07/16/19 Time of Disposition Decision: 12:08 DIAGNOSIS: Hyperglycemia, Dehydration, Renal insufficiency, mild Chest pain Qualifiers: Chest pain type: unspecified Qualified Code(s): R07.9 - Chest pain, unspecified Hypertension Qualifiers: Hypertension type: essential hypertension Qualified Code(s): I10 - Essential (primary) hypertension Disposition: ADMITTED INPATIENT 09 Certified Medical Emergency: Emergent Condition: Stable Referrals and Follow-Ups: Oskar Brothers MD [Primary Care Provider] - - Critical Care Note This patient required my direct & personal management of CC.: No Attestation - Physician/ WALTER Attestation Patient care was provided by Advanced Practice Provider:: Yes Advanced Practice Provider:: Aleida Feldman Advanced Practice Provider documentation review:: The Mid-level provider documentation, treatment plan and medical decision making was reviewed by the physician who agrees with all treatment and medical decision making by the MLP. The physician spent face to face time with patient:: No Advanced Practice Provider documentation review:: Supervising physician onsite and consulted in the evaluation and care of this patient. The physician did not have a face to face encounter with the patient.
--- NOTE | 2019-07-16 09:50 | Diag Imaging Result Doc PS360 ---
EXAM: CHEST-PORTABLE HISTORY: CP TECHNIQUE: Single view COMPARISON: 04/01/2019 FINDINGS: The lungs are well expanded. The heart is borderline mildly prominent. The vessels are not distended. There are no infiltrates. No effusion identified. IMPRESSION: Stable exam Electronically signed by Perfecto Slaughter 07/16/2019 9:48 AM
--- NOTE | 2019-07-16 10:09 | Diag Imaging Result Doc PS360 ---
EXAM: CT HEAD W/O CONTRAST HISTORY: Slurred speech TECHNIQUE: CT head without contrast COMPARISON: 05/19/2018 FINDINGS: No parenchymal hemorrhage. No epidural or subdural hematoma. No subarachnoid hemorrhage. There are mild chronic microvascular ischemic changes. No mass identified on this noncontrasted exam. No hydrocephalus. No sinus opacification. IMPRESSION: 1.No hemorrhage 2.Mild chronic microvascular ischemic changes This exam was performed using automated exposure control, adjustment of mA or kV according to patient size, and/or use of iterative reconstruction technique. Electronically signed by Perfecto Slaughter 07/16/2019 10:07 AM
[2019-07-16 10:38] LABS: BASO# 0.03 X1000 (0.0-0.2); BASO% 0.3 % (0.0-0.8); EOS# 0.25 X1000 (0.0-0.7); EOS% 2.2 % (0.0-10.0); HEMATOCRIT 41.5 % (37.0-47.0); HEMOGLOBIN 13.6 g/dL (12.0-16.0); LYMPH# 1.55 X1000 (1.2-3.4); LYMPH% 13.4 % (20.5-51.1); MCH 26.3 PG (27-31); MCHC 32.8 g/dL (33-37); MCV 80.1 FL (81-99); MONO# 0.98 X1000 (0.11-0.59); MONO% 8.5 % (1.7-9.3); MPV 8.7 FL (7.4-10.4); NEUT# 8.75 X1000 (1.4-6.5); NEUT% 75.6 % (42.2-75.2); PLT 346 X1000 (130-400); RBC 5.18 XMIL (4.2-5.4); RDW 14.7 % (11.5-14.5); WBC 11.56 X1000 (4.8-10.8)
[2019-07-16 10:41] LABS: ALB/GLOB RATIO 1.1; ALBUMIN 3.2 g/dL (3.5-5.0); CALCIUM 8.7 mg/dL (8.8-10.2); CREATININE 1.3 mg/dL (0.5-0.9); POTASSIUM 4.8 mmol/L (3.5-5.1); TOTAL BILIRUBIN 0.24 mg/dL (0.20-1.00); TOTAL PROTEIN 6.2 g/dL (6.3-8.3)
[2019-07-16 10:46] LABS: URINE SOURCE CLEAN CATCH
[2019-07-16] MEDS ORDERED: NS 1,000 ML IV ONE (10:52)
[2019-07-16] MEDS ORDERED: HUMULIN R IV ONE (10:52)
[2019-07-16 11:27] LABS: URINE RBC <10 /HPF (<10); URINE WBC TNTC /HPF (<10)
[2019-07-16 11:28] LABS: BILIRUBIN URINE NEGATIVE (NEGATIVE); BLOOD URINE SMALL (NEGATIVE); COLOR YELLOW; GLUCOSE URINE >1000 mg/dL (NEGATIVE); KETONE URINE NEGATIVE (NEGATIVE); LEUKOCYTES URINE NEGATIVE (NEGATIVE); NITRITE URINE NEGATIVE (NEGATIVE); PROTEIN URINE 300 mg/dL (NEGATIVE); SP GRAVITY URINE 1.025; TURBIDITY URINE HAZY (CLEAR); UR EPITHELIAL CELLS <10 /HPF (<10); URINE BACTERIA 2+ /HPF; UROBILINOGEN URINE NORMAL (NORMAL)
[2019-07-16] MEDS ORDERED: ROCEPHIN 1 GM in NS 50 ML IV ONE (11:40)
--- NOTE | 2019-07-16 11:44 | Diag Imaging Result Doc PS360 ---
EXAM: CT ABDOMEN/PELVIS W/O CONTRAST HISTORY: Right side abd pain TECHNIQUE: CT abdomen and pelvis without contrast COMPARISON: 10/01/2018 FINDINGS: The gallbladder has been removed. The liver is enlarged measuring over 24 cm in AP diameter. No focal hepatic abnormality identified on this noncontrasted exam. Normal spleen and adrenal glands. No inflammation about the pancreas. No renal stones. No hydronephrosis. No aortic aneurysm. Moderate atherosclerosis. No bowel obstruction. No ascites. No inflammation about the cecum. No abscess. The urinary bladder is distended and appears normal. The uterus has been removed. There is a 2.4 x 4.8 cm cyst between the urinary bladder and rectum. This was present on the prior exam. No definite change in size. IMPRESSION: Stable CT of the abdomen and pelvis. This exam was performed using automated exposure control, adjustment of mA or kV according to patient size, and/or use of iterative reconstruction technique. Electronically signed by Perfecto Slaughter 07/16/2019 11:42 AM
[2019-07-16] MEDS: NS 1,000 ML IV ONE ×2 (12:10→16:05)
[2019-07-16] MEDS ORDERED: ATIVAN IV ONE (13:14)
[2019-07-16] MEDS ORDERED: BENADRYL IV ONE (13:14)
[2019-07-16] MEDS ORDERED: DECADRON IV ONE (13:16)
--- NOTE | 2019-07-16 13:16 | ED EKG INTERP ---
This chart was entered by Ileana Singleton Scribe, acting as scribe for Scar Augustin MD. EKG Interpretation - EKG Time of EKG reading by physician:: 13:07 EKG Read and Signed by:: Scar Augustin EKG Interpretation (*Must complete 3 of following elements*): Abnormal Rate: 99 Rhythm: NSR [place]: normal Comments: 1st degree AV block; prlonged QT; R hemiblock; no STEMI Attestation - Physician/ WALTER Attestation Patient care was provided by Advanced Practice Provider:: Yes Advanced Practice Provider:: Aleida Feldman Advanced Practice Provider documentation review:: The Mid-level provider documentation, treatment plan and medical decision making was reviewed by the physician who agrees with all treatment and medical decision making by the MLP. The physician spent face to face time with patient:: Yes (I did see this patien t) Advanced Practice Provider documentation review:: Supervising physician onsite and consulted in the evaluation and care of this patient. The physician did have a face to face encounter with the patient. This chart was documented by the indicated scribe, (Ileana Singleton Scribe) and accurately reflects the services I performed and decisions made by me, Scar Augustin MD, as attested by the provider's signature.
--- NOTE | 2019-07-16 13:20 | EKG Report ---
Test Performed on : 07/16/2019 1:05:11 PM Test Reason : CP Blood Pressure : / mmHG Vent. Rate : 099 BPM Atrial Rate : 099 BPM P-R Int : 252 ms QRS Dur : 102 ms QT Int : 454 ms P-R-T Axes : 073 -28 046 degrees QTc Int : 582 ms Sinus rhythm. with 1st degree AV block. Incomplete right bundle branch block Prolonged QT Abnormal ECG When compared with ECG of 16-JUL-2019 09:16, (Unconfirmed) QT has lengthened Unconfirmed Result
--- NOTE | 2019-07-16 13:42 | EKG Report ---
Test Performed on : 07/16/2019 1:24:47 PM Test Reason : CP Blood Pressure : / mmHG Vent. Rate : 109 BPM Atrial Rate : 109 BPM P-R Int : 194 ms QRS Dur : 086 ms QT Int : 342 ms P-R-T Axes : 038 -46 030 degrees QTc Int : 460 ms Sinus tachycardia. Left axis deviation Nonspecific ST and T wave abnormality Abnormal ECG When compared with ECG of 16-JUL-2019 13:05, (Unconfirmed) [place] interval has decreased QT has shortened Unconfirmed Result
--- NOTE | 2019-07-16 16:07 | EKG Report ---
Test Performed on : 07/16/2019 2:23:12 PM Test Reason : CP Blood Pressure : / mmHG Vent. Rate : 102 BPM Atrial Rate : 102 BPM P-R Int : 224 ms QRS Dur : 100 ms QT Int : 356 ms P-R-T Axes : 059 -35 053 degrees QTc Int : 463 ms Sinus tachycardia. with 1st degree AV block. with fusion complexes Left axis deviation Incomplete right bundle branch block Abnormal ECG When compared with ECG of 16-JUL-2019 13:24, (Unconfirmed) fusion complexes are now present VT interval has increased Nonspecific T wave abnormality no longer evident in Inferior leads Confirmed by Disha JENKINS, Rishi ([id number]) on 07/17/2019 11:22:15 AM
[2019-07-16] MEDS ORDERED: NORCO-5 PO PRN (18:33)
[2019-07-16] MEDS: ASPIRIN PO SCH (18:57)
--- NOTE | 2019-07-16 19:42 | HISTORY AND PHYSICAL ---
CHIEF COMPLAINT: Abdominal pain, chest pain. HISTORY OF PRESENT ILLNESS: Ms. Norwood is a 68-year-old white female patient, extremely vague and poor historian. The patient came to my office for evaluation. Complaining of pain, right side of the abdomen, moderate pain. The patient described pain in the right flank going to the right lower quadrant, moderate pain. The patient had some nausea but no vomiting. The patient did have some chills, but no high-grade fever. When the patient came to my office she was very unsteady, complaining of being dizzy, at times lightheaded. The patient claims she was not feeling good the last few days. We let her sit in the wheelchair and took her to the exam room for evaluation. The patient was also complaining of chest pain which she described as a pressure, some shortness of breath. Her stress test a few months ago was benign. The patient does get short of breath with exertion. The patient had history of dizziness, at times vertigo. Complaining of headache. Her blood pressure in my office: Systolic blood pressure was around 200, diastolic was around 100. The patient was feeling fatigued, tired and no energy. She does have a runny nose, stuffy nose, sinus drainage, cough with scanty sputum production. No diarrhea or blood or mucus in the stool. Complaining of urinary frequency, urgency, at times incontinence. The patient also has dysuria. No vaginal discharge, spotting or bleeding. Unquantified weight loss. No heat or cold intolerance. The patient does have polyuria and polydipsia. Complaining of joint pain, arthralgia. No joint stiffness. The patient claims to be under stress. No heat or cold intolerance. The patient does have burning pain in the feet, complaining of evidence of stasis dermatitis in the legs, much more in the right leg. The patient does have history suggestive of depression, anxiety and stress. No suicidal or homicidal ideation. Arthritic pain in the knee, at times in the lower back. No further history available at this time. ALLERGIES: Codeine, iodine, sulfa. The patient did have some excessive salivation with ceftriaxone, which was added today. PAST MEDICAL HISTORY: Coronary artery disease; the patient had stent; hypertension; hyperlipidemia; morbid obesity; hypothyroidism; vitamin D deficiency; depression; recurrent sinusitis; gastritis and reflux disease; osteoarthritis; sleep apnea; history of cyst in the pelvis. MEDICATIONS: Home medications include Coreg, Cymbalta, Lasix, Lantus, Humalog, Synthroid, losartan, Effient. PERSONAL HISTORY: , lives with the . Nonsmoker. Denied alcohol or substance abuse. Fairly independent in activities of daily living. FAMILY HISTORY: Noncontributory. REVIEW OF SYSTEMS: As per HPI. PAST SURGICAL HISTORY: The patient had cholecystectomy, right knee arthroscopy, cardiac stent, hysterectomy, skin cancer removed from the right hip, right hand tendon release. PHYSICAL EXAMINATION: GENERAL: Elderly white female patient in mild distress. VITAL SIGNS: Blood pressure 192/81, pulse 104, respirations 18, temperature 98.4 degrees. SKIN: The patient has stasis dermatitis, much more right leg compared to left. HEENT: Head is atraumatic, normocephalic. [place] conjunctivae. Anicteric sclerae. Extraocular muscle movement normal. Fundus cannot be penetrated. Good oral hygiene. No tonsillopharyngeal congestion or exudate. Ears and nose benign. Minimal tenderness, left maxillary sinus. NECK: Supple. No JVD, thyromegaly or lymphadenopathy. CHEST: Bibasilar crepitation. Bilateral occasional wheezing. No rales. CARDIOVASCULAR: S1 and S2 heard. Systolic murmur 2/6 at the apex. No gallop or thrill. ABDOMEN: Soft, globular. Bowel sounds present. Tenderness in the epigastrium and right upper quadrant. No guarding or rigidity. EXTREMITIES: No cyanosis or clubbing. No acute DVT. Peripheral pulsation intact. CENTRAL NERVOUS SYSTEM: Alert, awake, able to move all 4 limbs. The patient did have some confusion. LABORATORY DATA: Hemoglobin 13.6, hematocrit 41.5, WBC count 11.56, platelet count 346,000. Electrolytes were fairly benign. BUN 25, creatinine 1.3. Blood sugar was 415. Cardiac isoenzymes were negative. ProBNP was 77. TSH 4.24. Urinalysis did reveal [id number]-count WBC, 2+ bacteria. ASSESSMENT: 1. Patient admitted with mild altered mental status. Her presentation is more suggestive of metabolic encephalopathy. Could be due to urinary tract infection. 2. Her other problem includes uncontrolled hypertension. 3. Atypical chest pain. 4. Shortness of breath. 5. Abdominal pain in the right upper quadrant. 6. Gastritis and reflux disease. 7. Osteoarthritis. 8. Depression and anxiety. 9. History of sleep apnea. 10. Hypothyroidism. 11. Diabetes mellitus, poorly controlled. 12. Sinusitis. PLAN: Admit the patient. IV antibiotics. Septic workup. Close observation. Cardiology consult because of chest pain. Continue home medicine. Overall plan discussed at length with the patient and family, and they are in agreement. cc: Oskar Brothers MD
--- NOTE | 2019-07-16 19:54 | CARDIOLOGY CONSULTATION ---
DATE: 07/16/2019 CHIEF COMPLAINT: Apparent chest discomfort, shortness breath, weakness, abdominal pain. HISTORY OF PRESENT ILLNESS: Ms. Norwood is a 68-year-old female with a history of coronary disease who presented to her primary care physician's office, was evaluated, and later sent to the emergency room. In the emergency room, the patient had apparent complaints of some abdominal pain to the right side going down into the flank and into the lower back on the right. This particular pain seems to have been relatively constant for at least 1 week. There seems to be a significant degree of positional discomfort. It hurts a lot getting in and out of a car, as well as bending over. There seems to be a component that is much worse with twisting and bending at the waist. She does not complain to me with any chest discomfort. There is no exertional chest pain. There does not seem to be any orthopnea. The patient has had a significant degree of weakness. She denies any overt fevers or chills. No cough. She does report some bladder spasms that she has been experiencing as well as some increased difficulties with urinary incontinence. PAST MEDICAL HISTORY: 1. Significant for coronary disease with previous PCI. 2. Hypertension. 3. Diabetes. 4. Hyperlipidemia. SOCIAL HISTORY: She is . No tobacco use. FAMILY HISTORY: Significant for hypertension. REVIEW OF SYSTEMS: A 10 system review of systems is negative except for those things mentioned in HPI. PHYSICAL EXAMINATION: She is afebrile. Heart rate of 94, blood pressure 163/69.General: She is in no acute distress. HEENT: Oropharynx is moist. Poor dentition. Eye examination is pink conjunctivae. White sclerae. Neck: Examination shows no obvious thyromegaly or thyroid tenderness. Cardiovascular: She sounds to be in a regular rate and rhythm. She has no obvious murmurs. She has no S3. She has no lower extremity edema. Chest: Clear bilaterally. She has no increased work of breathing. Abdomen: Soft. There is diffuse tenderness more so on the right upper and lower quadrants. No obvious organomegaly. Skin: Warm and dry throughout. Neurological: She is moving all extremities well. She has no lateralizing deficits. PERTINENT DATA: Her EKG on the at 1305 shows sinus rhythm. Subsequent EKG at 1324 today shows sinus rhythm, no ischemic changes. Final EKG on the 26th at 1423 shows sinus rhythm, no ischemic changes. All those EKGs were reviewed by me. Her abdomen and pelvis CT demonstrated a stable CT. There is no bowel obstruction. No acute inflammation. No abscess. A 2.4 x 4.8 cm cyst between the bladder and rectum present on previous examinations. No evidence of pancreatitis. Her head CT demonstrated no hemorrhage, mild chronic microvascular ischemic changes. Her chest x-ray was stable. Her lab data shows a white count of 11.6, hematocrit 41, platelet count 346,000. Her sodium is 135, potassium 4.8, BUN 25, creatinine is 1.3. Cardiac enzymes are negative times multiple sets. Her TSH is 4.24. Her urinalysis showed too numerous to count white blood cells. 2+ bacteria. ASSESSMENT: Ms. Norwood is a 68-year-old female who presented with multiple complaints including abdominal pain, back pain, as well as some urinary discomfort. PLAN: At this point, I would not recommend further cardiac evaluation. The patient had a stress test performed roughly 6 months ago that was really unremarkable for any evidence of ischemic changes. Her echocardiogram demonstrated a normal ejection fraction at that time. No obvious abnormalities. Her lab evaluation from a cardiac standpoint has been unremarkable at this point. For now, I would continue with current medications. Her blood pressure is quite elevated. We may need to adjust medications from that standpoint. In addition, she will likely need addition of statin therapy. We will check a set of lipids in the morning. cc: MD Oskar Escobedo MD
[2019-07-16] MEDS ORDERED: LASIX PO SCH (21:00)
[2019-07-16] MEDS ORDERED: LANTUS INSULIN SUBQ SCH (21:00)
[2019-07-16] MEDS: COREG PO SCH (21:58)
[2019-07-16] MEDS: LEVAQUIN 500 MG/D5W 500 MG/100 ML IVPB IV SCH (21:58)
[2019-07-16] MEDS: KENALOG 0.1% CREAM TOP SCH (21:58)
[2019-07-17] MEDS: HUMALOG SUBQ SCH ×3 (06:25→16:15)
[2019-07-17 06:38] LABS: BASO# 0.01 X1000 (0.0-0.2); BASO% 0.1 % (0.0-0.8); EOS# 0.31 X1000 (0.0-0.7); HEMATOCRIT 40.2 % (37.0-47.0); HEMOGLOBIN 12.8 g/dL (12.0-16.0); IMM GRAN# 0.03 X1000 (0.0-0.04); IMM GRAN% 0.3 % (0.0-0.5); LYMPH% 21.6 % (20.5-51.1); MCH 25.8 PG (27-31); MCHC 31.8 g/dL (33-37); MCV 80.9 FL (81-99); MONO# 0.73 X1000 (0.11-0.59); MONO% 7.2 % (1.7-9.3); MPV 8.6 FL (7.4-10.4); NEUT% 67.8 % (42.2-75.2); PLT 374 X1000 (130-400); RBC 4.97 XMIL (4.2-5.4); RDW 14.5 % (11.5-14.5); WBC 10.18 X1000 (4.8-10.8)
[2019-07-17 06:47] LABS: HEMOGLOBIN A1C 8.9 % (4.8-6.0)
[2019-07-17 06:51] LABS: CHOLESTEROL 160 mg/dL (0-200); HDL 31 mg/dL (45-65); LDL 94 mg/dL; TRIGLYCERIDES 175 mg/dL (35-135); VLDL 35 mg/dL
--- NOTE | 2019-07-17 06:53 | PROGRESS NOTE ---
DATE: 07/17/2019 Ms. Norwood is feeling some better. Patient claims her confusion seems to be improving. Still has some pain right side of the abdomen, at times nausea, but no vomiting. No typical chest pain or palpitations. No high-grade fever or chills. Blood sugar at times staying high. Patient admitted with emergent hypertension, confusion, found to have UTI, pain in the right upper quadrant. OBJECTIVE: Her vital signs noted. Blood pressure 151/62, pulse 73, respirations 18, temperature 98.2 degrees. Neck: Supple. No JVD. Lungs: Bibasilar crepitation. Heart: S1 and S2 heard. Abdomen: Soft, globular. Bowel sounds present. Tenderness epigastrium and right upper quadrant is less. Evidence of stasis dermatitis right leg. NETWORK TECHNICIAN: Alert, awake answering questions well. CONSIDERATIONS: Possible metabolic encephalopathy due to UTI, emergent hypertension, diabetes mellitus, uncontrolled gastritis and reflux disease, history of hypothyroidism. Appreciate Dr. Carney's help managing patient. A.m. lab data is pending. Will continue current treatment. Continue IV antibiotics. Optimize treatment for hypertension, pain management, physical therapy, out of bed to chair. Overall plan discussed with the patient and she is in agreement. cc: Oskar Brothers MD
[2019-07-17 07:07] LABS: ALB/GLOB RATIO 0.9; ALBUMIN 2.9 g/dL (3.5-5.0); CALCIUM 8.4 mg/dL (8.8-10.2); CREATININE 1.1 mg/dL (0.5-0.9); MAGNESIUM 1.6 mg/dL (1.5-2.7); POTASSIUM 4.2 mmol/L (3.5-5.1); TOTAL BILIRUBIN 0.25 mg/dL (0.20-1.00); TOTAL PROTEIN 6.2 g/dL (6.3-8.3)
[2019-07-17 07:26] LABS: FREE T4 1.22 ng/dL (0.93-1.70); TSH 4.91 uIUmL (0.27-4.20)
[2019-07-17] MEDS: COREG PO SCH ×2 (08:25→22:11)
[2019-07-17] MEDS: SYNTHROID PO SCH (08:25)
[2019-07-17] MEDS: CYMBALTA PO SCH (08:25)
[2019-07-17] MEDS: KLOR-CON PO SCH (08:25)
[2019-07-17] MEDS: COZAAR PO SCH (08:25)
[2019-07-17] MEDS: LASIX IV SCH ×2 (08:25→22:10)
[2019-07-17] MEDS: EFFIENT PO SCH (08:25)
[2019-07-17] MEDS: ASPIRIN PO SCH (08:25)
[2019-07-17] MEDS: VITAMIN D PO SCH (08:25)
[2019-07-17] MEDS: KENALOG 0.1% CREAM TOP SCH ×2 (08:26→22:11)
[2019-07-17] MEDS: LANTUS INSULIN SUBQ SCH ×2 (09:11→22:11)
[2019-07-17] MEDS: LEVAQUIN 500 MG/D5W 500 MG/100 ML IVPB IV SCH (22:10)
[2019-07-18] MEDS: HUMALOG SUBQ SCH ×3 (06:28→17:16)
[2019-07-18] MEDS: LASIX IV SCH ×2 (08:16→23:36)
[2019-07-18] MEDS: CYMBALTA PO SCH (08:16)
[2019-07-18] MEDS: VITAMIN D PO SCH (08:16)
[2019-07-18] MEDS: EFFIENT PO SCH (08:16)
[2019-07-18] MEDS: COZAAR PO SCH (08:17)
[2019-07-18] MEDS: COREG PO SCH ×2 (08:17→22:09)
[2019-07-18] MEDS: KLOR-CON PO SCH (08:17)
[2019-07-18] MEDS: ASPIRIN PO SCH (08:17)
[2019-07-18] MEDS: SYNTHROID PO SCH (08:17)
[2019-07-18] MEDS: KENALOG 0.1% CREAM TOP SCH ×2 (08:18→22:03)
[2019-07-18] MEDS: LANTUS INSULIN SUBQ SCH ×2 (08:44→22:04)
--- NOTE | 2019-07-18 14:24 | PROGRESS NOTE ---
DATE: 07/18/2019 68-year-old white female patient of Dr. Brothers admitted on 07/16 with abdominal pain, chest pain. The patient was seen by Dr. Raf Carney. He is not going to pursue any further cardiac workup. She also has some metabolic encephalopathy. Today, she is not offering any complaints. PAST MEDICAL HISTORY: Reviewed. PAST SURGICAL HISTORY: Reviewed. MEDICINES: Reviewed. ALLERGIES: Ceftriaxone, codeine, iodine and sulfa drugs. PHYSICAL EXAMINATION: Vital signs: 98.0 degrees, pulse 75, blood pressure is 123/61, 96% on nasal cannula. I's and O's negative 1.1 L. HEENT: Within normal limits. Neck: Supple. Chest: Clear. Heart: Sounds are regular, distant. Abdomen: Belly is soft, nontender. Extremities: Bilateral legs some stasis dermatitis changes noted. INVESTIGATIONS: White cell count 10, hematocrit 40, platelets 374,000. Sodium 134, potassium 4.2, BUN 18, creatinine 1.1, glucose 198, albumin 2.9, triglycerides 175, B12 539. TSH is slightly elevated. Free T4 is normal. Urine cultures mixed figueroa and no growth. CT scan of the abdomen and pelvis, stable, cholecystectomy, hepatomegaly. CT head was no hemorrhage, mild microvascular ischemic changes. Chest x-ray stable. EKG sinus tach with first-degree AV block, nothing acute. ASSESSMENT AND PLAN: 1. Atypical chest pain. EKG, cardiac enzymes were negative. No need for any further workup as per Dr. Carney. 2. Altered mental status due to delirium improving. 3. Possible UTI. Follow up on cultures are negative on Levaquin 500 IV q.12. Azotemia is better. 4. Depression on Cymbalta 60 in the morning. 5. Chronic pain on [place]. 6. Type 2 diabetes on Lantus 45 units subcutaneous b.i.d. and Humalog 20 units subcu t.i.d. 7. Hypothyroidism on Synthroid. 8. Hypertension. Continue on Cozaar 100 daily. 9. Vitamin D deficiency on replacement. 10. History of coronary artery disease status post PCI. Last stress test was 6 months ago and was unremarkable and currently patient has been on Effient 10 mg daily, Coreg 12.5 p.o. b.i.d., aspirin 81 mg daily. 11. Stasis dermatitis in both legs. Continue on Levaquin. Out of the bed with physical therapy and will follow up. LEVEL OF DOCUMENTATION: 35 minutes. cc: MD Oskar Evans MD
[2019-07-18] MEDS: LEVAQUIN 500 MG/D5W 500 MG/100 ML IVPB IV SCH (22:04)
[2019-07-19] MEDS: HUMALOG SUBQ SCH ×3 (06:40→19:06)
[2019-07-19] MEDS: COREG PO SCH ×2 (10:06→21:18)
[2019-07-19] MEDS: VITAMIN D PO SCH (10:06)
[2019-07-19] MEDS: CYMBALTA PO SCH (10:06)
[2019-07-19] MEDS: EFFIENT PO SCH (10:06)
[2019-07-19] MEDS: LASIX IV SCH ×2 (10:06→21:18)
[2019-07-19] MEDS: SYNTHROID PO SCH (10:07)
[2019-07-19] MEDS: KLOR-CON PO SCH (10:07)
[2019-07-19] MEDS: COZAAR PO SCH (10:07)
[2019-07-19] MEDS: ASPIRIN PO SCH (10:07)
[2019-07-19] MEDS: LANTUS INSULIN SUBQ SCH ×2 (10:08→21:17)
[2019-07-19] MEDS: KENALOG 0.1% CREAM TOP SCH ×2 (10:08→21:18)
--- NOTE | 2019-07-19 12:51 | PROGRESS NOTE ---
DATE: 07/19/2019 SUBJECTIVE: A 68-year-old, white female basically is sitting out of the bed. No complaints. Denies of any chest pain or abdominal pain. REVIEW OF SYSTEMS: None reported. PHYSICAL EXAMINATION: Vital Signs: Temperature is 98.3, pulse 82, blood pressure is 165/93, 2 L nasal cannula. HEENT: Examination within normal limits. Neck: Supple. Chest: Clear. Heart sounds are regular. Belly is soft, nontender. No neurological deficits. LABORATORY DATA: Blood sugars running around 136. ASSESSMENT AND PLAN: 1. Atypical chest pain ruled out. Recent workup 6 months ago negative. 2. Altered mental status, improving. 3. Possible urinary tract infection. Urine cultures are negative. On Levaquin 500 mg every 24 hours. 4. Depression, on Cymbalta. 5. Abdominal pain. Workup was negative. 6. Continue present treatment. Out of the bed with physical therapy. Hopefully, will discharge in the morning by Dr. Brothers. Findings discussed with the patient. LEVEL OF DOCUMENTATION: 25 minutes. cc: MD Oskar Evans MD
[2019-07-19] MEDS: LEVAQUIN 500 MG/D5W 500 MG/100 ML IVPB IV SCH (21:18)
[2019-07-20 06:08] LABS: BASO# 0.03 X1000 (0.0-0.2); BASO% 0.3 % (0.0-0.8); EOS# 0.28 X1000 (0.0-0.7); EOS% 2.5 % (0.0-10.0); HEMATOCRIT 38.7 % (37.0-47.0); HEMOGLOBIN 12.5 g/dL (12.0-16.0); IMM GRAN# 0.06 X1000 (0.0-0.04); IMM GRAN% 0.5 % (0.0-0.5); LYMPH# 2.27 X1000 (1.2-3.4); LYMPH% 19.9 % (20.5-51.1); MCH 26.2 PG (27-31); MCHC 32.3 g/dL (33-37); MONO# 0.93 X1000 (0.11-0.59); MONO% 8.1 % (1.7-9.3); MPV 8.4 FL (7.4-10.4); NEUT# 7.85 X1000 (1.4-6.5); NEUT% 68.7 % (42.2-75.2); PLT 384 X1000 (130-400); RBC 4.78 XMIL (4.2-5.4); RDW 14.5 % (11.5-14.5); WBC 11.42 X1000 (4.8-10.8)
[2019-07-20 06:23] LABS: ALB/GLOB RATIO 0.9; CALCIUM 8.5 mg/dL (8.8-10.2); CREATININE 1.7 mg/dL (0.5-0.9); MAGNESIUM 1.8 mg/dL (1.5-2.7); POTASSIUM 4.3 mmol/L (3.5-5.1); TOTAL BILIRUBIN 0.16 mg/dL (0.20-1.00); TOTAL PROTEIN 6.5 g/dL (6.3-8.3)
[2019-07-20] MEDS: HUMALOG SUBQ SCH (06:30)
[2019-07-20] MEDS ORDERED: SYNTHROID PO SCH (07:00)
[2019-07-20] MEDS: EFFIENT PO SCH (08:34)
[2019-07-20] MEDS: CYMBALTA PO SCH (08:34)
[2019-07-20] MEDS: VITAMIN D PO SCH (08:34)
[2019-07-20] MEDS: COREG PO SCH (08:34)
[2019-07-20] MEDS: KLOR-CON PO SCH (08:34)
[2019-07-20] MEDS: ASPIRIN PO SCH (08:34)
[2019-07-20] MEDS: COZAAR PO SCH (08:34)
[2019-07-20] MEDS: LANTUS INSULIN SUBQ SCH (08:34)
[2019-07-20] MEDS: KENALOG 0.1% CREAM TOP SCH (08:35)
[2019-07-20 08:41] VITALS: BP 116/72
[2019-07-20] MEDS ORDERED: LASIX PO SCH (09:00)
--- NOTE | 2019-07-21 08:44 | DISCHARGE SUMMARY ---
ADMISSION DATE: 07/16/2019 DISCHARGE DATE: 07/20/2019 FINAL DISCHARGE DIAGNOSES: 1. Metabolic encephalopathy. 2. Urinary tract infection. 3. Emergent hypertension. 4. Anxiety and depression. 5. Uncontrolled diabetes mellitus. 6. Hypothyroidism. 7. Gastritis and reflux disease. 8. Vitamin D deficiency. 9. Atypical chest pain. 10. Stasis dermatitis. 11. Coronary artery disease. HISTORY AND HOSPITAL COURSE: Ms Norwood is a 68-year-old white female patient, admitted with altered mental status, confusion, uncontrolled hypertension. I evaluated the patient in the office. Her blood pressure was very high. The patient did have confusion. Decided to admit the patient. Her urinalysis did show UTI. The patient also had uncontrolled diabetes. Patient admitted to step-down unit. We did a CT scan of the head and the results reviewed. It revealed no hemorrhage, mild chronic microvascular ischemic changes. Patient was complaining of pain in the right side of the abdomen. CT scan of the abdomen and pelvis without contrast did reveal stable CT of the abdomen and pelvis. The patient was given IV Lasix, IV antibiotics, symptomatic care. The patient did have a reaction to Rocephin. She was given IV Decadron and Benadryl. Her clinical condition gradually improved. I did treat the patient with IV Lasix. The patient did diurese well. Her blood sugar improved, leg swelling improved and stasis dermatitis improved. Her pain responded well to [place]. Overall patient received maximum benefit of hospitalization and I decided to discharge her home today. PHYSICAL EXAMINATION: Vital signs: Noted. Blood pressure 116/72, pulse 73, respiration 14, temperature 99 degrees. Skin: Normal turgor. Evidence of stasis dermatitis in the lower legs. Neck: Supple. No JVD. Lungs: Bilateral good air entry present. Cardiovascular: S1 and S2 heard. Abdomen: Soft, globular. Bowel sounds present. Central nervous system: Alert, awake, able to move all 4 limbs. The patient's leg swelling improved. Mental status also improved. Overall, patient received maximum benefit of hospitalization. I am going to discharge patient home. Urine culture was negative. I am going to stop Levaquin. DISCHARGE INSTRUCTIONS: Discussed fall precaution. Advised her to gradually increase her insulin to baseline insulin. Follow up with me in a week. No need for antibiotics now on. In case of more distress, call us back or go to emergency room. LABORATORY DATA: Revealed WBC count 11.42, hemoglobin 12.5, hematocrit 38.7, platelet count 384,000. Electrolytes: BUN 37, creatinine 1.7. Magnesium 1.8. Last blood sugar was 153. CT scan of the abdomen and pelvis result reviewed. Encouraged patient to be on strict diet. Keep the leg elevated, Kenalog cream locally. Follow up with me in a week. In case of more distress, call us back or go to emergency room. cc: Oskar Brothers MD
== END 2019-07-20 10:39 | disposition home or self-care (01) ==
LOC: ED 09:08 → EDIPHOLD 13:12 → 2N 16:15
PROVIDERS: ADMIT Internal Medicine; ATTEND Internal Medicine

== ENCOUNTER 2019-11-10 10:44 | Inpatient (IN) ==
--- NOTE | 2019-11-10 12:08 | PROVIDER DOCUMENTATION ---
HPI-General Adult - General Chief Complaint: Weakness Stated Complaint: GENERALIZED WEAKNESS Time Seen by Provider: 11/10/19 10:46 Source: patient Allergies/Adverse Reactions: Patient Allergies Allergy/AdvReac Type Severity Reaction Status Date / Time ceftriaxone [From Rocephin] AdvReac ANAPHYLAXIS Verified 11/10/19 12:02 codeine AdvReac Unknown Verified 11/10/19 12:02 iodine AdvReac Unknown Verified 11/10/19 12:02 Sulfa (Sulfonamide AdvReac Unknown Verified 11/10/19 12:02 Antibiotics) Home Medications: Home Medication List Medication Instructions Recorded Confirmed Last Taken Type Aspirin 81 mg PO DAILY 06/13/16 11/10/19 11/10/19 History Levothyroxine [Synthroid] 125 microgm PO DAILY 06/13/16 11/10/19 11/10/19 History Potassium Chloride 10 meq PO DAILY 06/23/18 11/10/19 11/10/19 History Carvedilol 12.5 mg PO BID #0 06/27/18 11/10/19 11/10/19 Rx Cholecalciferol (Vitamin D3) 1 cap PO DAILY 10/01/18 11/10/19 11/10/19 History [Vitamin D3] Furosemide [Lasix] 40 mg PO BID #60 10/07/18 11/10/19 11/10/19 Rx Triamcinolone 0.1% Cr [Kenalog 30 gm TOP BID tube 10/07/18 11/10/19 11/10/19 Rx 0.1% Cream] Losartan [Cozaar] 100 mg PO DAILY 07/16/19 11/10/19 11/10/19 History Prasugrel [Effient] 10 mg PO DAILY 07/16/19 11/10/19 11/10/19 History Duloxetine [Cymbalta] 60 mg PO QAM cap 07/20/19 11/10/19 11/10/19 Rx Nitrofurantoin Monohyd/M-Cryst 100 mg PO BID #10 cap 11/09/19 11/10/19 11/10/19 Rx [Macrobid 100 mg Capsule] Insulin Aspart [Novolog Flexpen] 38 units SUBQ TID AC 11/10/19 11/10/19 11/10/19 History Insulin Glargine,Hum.rec.anlog 58 units SUBQ BID 11/10/19 11/10/19 11/10/19 History [Meet Ramirez] - History of Present Illness -Gen Adult Nature of Presenting Problems: [id number] presents to the ER today the 3rd time in 24 hours with c/o weakness. Patient states that she cannot walk her right knee is unable to ambulate and she is dragging her right foot. Her family is unable to care for her and states that she needs to be admitted to the hospital. Patient did fall and twist right knee and has a PMH of right knee surgery. Patient does have swelling to right 5th metatarsal. Patient was diagnosed with a UTI yesterday. Location of Pain/Injury: reports: lower extremity (right knee and foot) Pain Radiation: reports: no radiation Quality of Pain: reports: throbbing Severity: reports: moderate Onset/Duration: reports: 24 hours ago Timing: reports: still present Context/Activities at Onset: reports: recent trauma history (recent fall with twisting of knee) Modifying Factors: improves with: immobilization (did not improve) Associated Symptoms: reports: denies symptoms Review of Systems - Adult - REVIEW OF SYSTEMS - ADULT Constitutional: reports: no symptoms reported. denies: chills, fever Eyes: reports: no symptoms reported Ears, Nose, Mouth & Throat: reports: no symptoms reported Cardiovascular: reports: no symptoms reported Respiratory: reports: no symptoms reported. denies: cough, shortness of breath, wheezing Gastrointestinal: reports: no symptoms reported. denies: diarrhea, nausea, vomiting Genitourinary: reports: frequent UTI's Musculoskeletal: reports: joint pain (right knee), muscle weakness (unable to move right leg) Integumentary: reports: no symptoms reported Neurological: reports: no symptoms reported Psychiatric: reports: no symptoms reported Endocrine: reports: no symptoms reported Hematologic/Lymphatic: reports: no symptoms reported Allergic/Immunologic: reports: no symptoms reported All Other Systems: Reviewed and Negative Past History - Adult - PAST MEDICAL HISTORY-ADULT Review of Records: reports: Old Records Reviewed, Nursing Assessment Review, Medications Reviewed, Social history reviewed & non-contributory. Major Childhood Illnesses: reports: denies history Cardiovascular: reports: HTN Respiratory: reports: asthma, sleep apnea Gastrointestinal: reports: GERD Obstetrical/Gynecological: reports: denies history Genitourinary: reports: denies history Musculoskeletal: reports: denies history Neurological: reports: denies history Psychiatric: reports: denies history Endocrine/Immune: reports: Diabetes, thyroid disorder Other Conditions: reports: denies history - PRIOR SURGERIES/PROCEDURES Surgical/Procedure History: reports: cholecystectomy, hysterectomy - IMMUNIZATION STATUS Childhood Immunizations: See Nurse Assessment Flu Vaccine: See Nurse Assessment - FAMILY HISTORY Family History: reviewed, not pertinent - SOCIAL HISTORY Smoking: denies Substance Use: denies Living Situation: family Physical Exam-General - PHYSICAL EXAM-ADULT Initial Vital Signs Reviewed: Yes - CONSTITUTIONAL General Appearance: appears well, alert, no apparent distress - EYES Eyes: PERRL/EOMI, pink conjunctivae - HEAD, EARS, NOSE, MOUTH & THROAT HENMT: normocephalic/atraumatic, moist mucous membranes, normal ENT inspection, TMs normal - NECK Neck: non-tender, full range of motion - RESPIRATORY Respiratory: chest non-tender, lungs clear, normal breath sounds, no pleuratic chest pain, no respiratory distress, no accessory muscle use - CARDIOVASCULAR Cardiovascular: normal peripheral pulses, regular rate, rhythm, no edema, no gallop, no JVD, no murmur - GASTROINTESTINAL (ABDOMEN) Abdominal Exam: normal bowel sounds, non tender, soft - MUSCULOSKELETAL Extremity: pedal edema (right leg), swelling (right leg), tenderness (right knee and foot) - SKIN Integumentary: warm/dry, erythema (right lower extremity and foot), swelling (right lower extremity) - NEUROLOGIC Neurologic: grossly normal - PSYCHIATRIC Psych/Mental Status: normal mood/affect, normal thought content, oriented x 3 Progress - PLAN OF CARE/RESULTS Progress/Plan/Lab Results: Vital Signs - 8 hr 11/10/19 10:55 Temperature 98.9 F Pulse Rate 75 Respiratory Rate 18 Blood Pressure 177/66 O2 Sat by Pulse Oximetry 97 Laboratory Results - last 24 hr 11/10/19 11:20 POC Glucose 229 H D Patient agrees with POC rendered today. - EKG 1 Time of EKG reading by physician:: 11:30 EKG Read and Signed by:: Dav Rodriguez EKG Interpretation (*Must complete 3 of following elements*): Normal Rate: 74 Rhythm: NSR 1st degree AVB [place]: normal QRS: normal NE Interval: normal ST Wave: normal Prior EKG Comparison: unchanged from prior - CONSULTS/PCP/HOSPITALIST Notification #1 *Consult/PCP/Hospitalist*: Dr. Vang Time Discussed: 12:00 Consult Disposition: Admit Departure - Departure Date of Disposition Decision: 11/10/19 Time of Disposition Decision: 12:14 DIAGNOSIS: Weakness UTI (urinary tract infection) Qualifiers: Urinary tract infection type: site unspecified Hematuria presence: without hematuria Qualified Code(s): N39.0 - Urinary tract infection, site not specified DM type 2 (diabetes mellitus, type 2) Qualifiers: Diabetes mellitus vermin exterminator insulin use: without vermin exterminator use Diabetes mellitus complication status: with other specified complication Qualified Code(s): E11.69 - Type 2 diabetes mellitus with other specified complication Disposition: ADMITTED INPATIENT 09 Certified Medical Emergency: Emergent Condition: Fair Referrals and Follow-Ups: Oskar Brothers MD [Primary Care Provider] - - Critical Care Note This patient required my direct & personal management of CC.: No Attestation - Physician/ WALTER Attestation Patient care was provided by Advanced Practice Provider:: Yes Advanced Practice Provider:: Simran Lorenzo Advanced Practice Provider documentation review:: The Mid-level provider documentation, treatment plan and medical decision making was reviewed by the physician who agrees with all treatment and medical decision making by the MLP. The physician spent face to face time with patient:: No Advanced Practice Provider documentation review:: Supervising physician onsite and consulted in the evaluation and care of this patient. The physician did not have a face to face encounter with the patient.
[2019-11-10] MEDS ORDERED: NS 1,000 ML IV ONE (12:19)
[2019-11-10] MEDS ORDERED: ULTRAM PO PRN (12:22)
[2019-11-10] MEDS: LEVAQUIN 750 MG in NS 150 ML IV SCH (13:07)
--- NOTE | 2019-11-10 13:57 | EKG Report ---
Test Performed on : 11/10/2019 11:27:18 AM Test Reason : ED. NO EKG ORDER FOR MUSE Blood Pressure : / mmHG Vent. Rate : 074 BPM Atrial Rate : 074 BPM P-R Int : 248 ms QRS Dur : 106 ms QT Int : 390 ms P-R-T Axes : 046 -19 039 degrees QTc Int : 432 ms Sinus rhythm. with sinus arrhythmia. with 1st degree AV block. Otherwise normal ECG When compared with ECG of 09-NOV-2019 10:11, (Unconfirmed) Nonspecific T wave abnormality no longer evident in Lateral leads Unconfirmed Result
[2019-11-10] MEDS: HUMALOG SUBQ SCH ×2 (16:20→22:28)
--- NOTE | 2019-11-10 20:15 | HISTORY AND PHYSICAL ---
CHIEF COMPLAINT: Leg pain and weakness. HISTORY OF PRESENT ILLNESS: Ms. Norwood is a 68-year-old white female patient, very vague and a poor historian. The patient is not doing well for the last 3 days, complaining of weakness in the right foot and leg. The patient had a fall at her house on Saturday in the geographic information system survey[place]. The patient was not able to get up by herself. The family also needed to help her, but they could not get her up. They had to call EMT. The patient was brought to the emergency room for evaluation. The patient was evaluated by the ER physician. The patient had a CT scan, blood work and urinalysis done. The patient was told she had a UTI causing confusion. Her CT scan did not show any acute changes. The patient was discharged home. According to the daughter, it took 45 minutes for 4 family members to take her inside the house from the car which is a very short distance. The patient was complaining of pain in the right foot and leg. The patient also had some weakness. The patient while going to the bathroom fell again on her right knee, complaining of pain and swelling. It was very difficult for the family to get her up again. They brought her back to the emergency room. She was evaluated by the ER physician and told to have bruised the knee. The patient was discharged back home. The patient was discharged on Macrobid. The patient was in moderate to severe pain in the right leg and foot. The patient did have confusion and altered mental status at times with leg weakness. According to the patient's daughter, she was feeling like she was moving her right leg but she was not able to. The patient did have some chills but no fever. The patient had urinary frequency and urgency and at times incontinence. The patient had an odor to her urine. Her oral intake was variable. The patient was complaining of pain in the right hip. The patient was needing assistance in getting up and going to the bathroom. Her cannot take care of the patient. She came back to the ER because of her significant pain, some redness in the right foot and both lower legs. I decided to admit the patient for further care. The patient does have longstanding diabetes mellitus, poorly controlled and diffuse osteoarthritis. The patient does have at times a dull headache. No runny nose, stuffy nose, sinus drainage and at times a sore throat. No dysphagia or odynophagia. No hematemesis or melena. The patient was feeling weak, tired and with no energy. According to the daughter, they also noticed some weakness in the right upper limb. No further history available at this time. ALLERGIES: Rocephin, codeine, iodine, and sulfa. MEDICATIONS: Coreg, aspirin, Macrobid, vitamin D3, Cymbalta, Lasix, NovoLog, Lantus, Synthroid, Cozaar, potassium, Effient, Kenalog cream. PAST MEDICAL HISTORY: Significant for stasis dermatitis of both legs, more so on the right. Coronary artery disease. Hypertension. Hypothyroidism. Diabetes mellitus requiring insulin. Coronary artery disease. Hypertension. Vitamin D deficiency. Recurrent urinary tract infections. Urge urinary incontinence. Osteoarthritis. Recurrent sinusitis. Mild cognitive impairment. The patient has sleep apnea and had a cyst in her pelvis. PERSONAL HISTORY: . Lives with the . Nonsmoker. Denied alcohol or substance abuse. REVIEW OF SYSTEMS: As per HPI. Otherwise unobtainable. PAST SURGICAL HISTORY: The patient had a hysterectomy, cholecystectomy, cardiac stent, skin cancer removed from the right hip area and right hand tendon release. Right knee arthroscopic surgery. FAMILY HISTORY: Noncontributory. PHYSICAL EXAMINATION: VITAL SIGNS: Blood pressure 193/84, pulse 77, respirations 18, temperature 98.9. GENERAL: An elderly white female patient in mild distress. SKIN: Senile turgor. HEENT: Head atraumatic and normocephalic. [place] conjunctivae. Sclerae are anicteric. Extraocular muscle movements normal. Fundus could not be penetrated. Good oral hygiene. No tonsillopharyngeal congestion or exudates. Ears and nose benign. NECK: Supple. No JVD, thyromegaly or lymphadenopathy. CHEST: Bibasilar crepitations. No rales. CARDIOVASCULAR: S1 and S2 heard. No gallop or thrill. ABDOMEN: Soft. Globular. Bowel sounds present. EXTREMITIES: No clubbing or cyanosis. Minimal swelling in both legs. Patient does have evidence of stasis dermatitis in both lower legs and feet. NEUROLOGIC: Alert, awake. The patient does have mild cognitive impairment and some confusion. Able to move all 4 limbs. The patient does have some weakness in the right lower leg due to pain. Patient does have minimal swelling of the right knee due to her fall. LABORATORY DATA: Her lab data revealed electrolytes checked yesterday; WBC count 12.24, hemoglobin 13.5, hematocrit 41.4, platelet count 362,000. PT and PTT were benign. Sodium 132, potassium 4.5, her proBNP was 124. Urinalysis too numerous to count WBCs. The patient had a CT scan of the head done and results reviewed. Knee x-ray done yesterday revealed mild osteoarthritis, superficial soft tissue edema. CONSIDERATIONS: 1. Patient admitted with right leg pain, some weakness, could be due to pain. 2. Urinary tract infection. Patient does have some altered mental status, could be due to metabolic encephalopathy. 3. Uncontrolled hypertension, could be due to pain. 4. Uncontrolled diabetes mellitus. 5. Hypothyroidism. 6. Stasis dermatitis in the leg. 7. History of coronary artery disease. 8. Hip pain. 9. History of sinusitis. 10.Obesity. 11.Mild cognitive impairment. 12.Labs and medications noted. PLAN: 1. Admit the patient. 2. Pain management. 3. IV antibiotics. 4. Physical Therapy evaluation. 5. Fall precautions. Overall plan discussed with the patient and her daughter. They are in agreement. cc: Oskar Brothers MD
[2019-11-10] MEDS ORDERED: LASIX PO SCH (21:00)
--- NOTE | 2019-11-10 21:06 | Diag Imaging Result Doc PS360 ---
EXAM: HIP W/PELVIS BILAT 2 VIEWS INDICATION: H/O fall hip pain TECHNIQUE: 4 views COMPARISON: None. FINDINGS: There are enthesophytes at the iliac crest bilaterally. There is no discrete fracture, dislocation, or significant intrinsic osseous lesion involving the pelvis or hips, otherwise. The hip joint spaces appear to be relatively well-maintained. The surrounding soft tissues are essentially unremarkable. IMPRESSION: No evidence of acute osseous abnormality. Electronically signed by Ben Jaimes 11/10/2019 9:03 PM
[2019-11-10] MEDS: COREG PO SCH (22:28)
[2019-11-10] MEDS: LANTUS INSULIN SUBQ SCH (22:28)
[2019-11-10] MEDS: KENALOG 0.1% CREAM TOP SCH (22:50)
[2019-11-11] MEDS: HUMALOG SUBQ SCH ×7 (06:28→20:59)
[2019-11-11] MEDS: SYNTHROID PO SCH (06:30)
--- NOTE | 2019-11-11 07:13 | PROGRESS NOTE ---
DATE: 11/11/2019 SUBJECTIVE: Ms. Norwood is doing fair. The patient was complaining of some pain in the right leg, mainly the knee and the hip. Her x-ray on the hip and pelvis was negative for fracture. The patient was complaining of swelling of the feet and leg, complaining of lack of coordination on the right upper limb and leg. No nausea or vomiting. No typical chest pain or palpitations. The patient does have some dementia and confusion. The patient was admitted status post fall yesterday. I got history from her daughter. OBJECTIVE: Vital Signs: Noted. Neck: Supple. No JVD. Lungs: Bibasilar crepitations. Heart: S1 and S2 heard. Abdomen: Soft, globular. Bowel sounds present. STRAP SETTER: Alert, awake. Answering questions fair. The patient does have weaker hand help aid on the right hand. Also lack of coordination on the right upper limb compared to left side. Swelling of the right foot. CONSIDERATION: 1. Urinary tract infection. 2. History of fall. 3. Diabetes mellitus. 4. Her CT scan of the brain was negative. 5. Hypothyroidism. 6. Hypertension. 7. Situational depression. 8. History suggestive of peripheral neuropathy. 9. Vitamin D deficiency. PLAN: Her morning blood work is pending. I am going to get neurology consult. Plan is to send patient to rehab. One of the requirements is Covid-19 test. That is why I am ordering it. We will get neurology consult. Fall precaution. I am going to give her IV Lasix. Overall plan discussed with the patient. She is in agreement. Fall precaution, advised patient not to get up by herself. cc: Oskar Brothers MD
[2019-11-11 07:31] LABS: BASO# 0.03 X1000 (0.0-0.2); BASO% 0.3 % (0.0-0.8); EOS# 0.28 X1000 (0.0-0.7); EOS% 2.7 % (0.0-10.0); HEMATOCRIT 40.8 % (37.0-47.0); HEMOGLOBIN 13.2 g/dL (12.0-16.0); IMM GRAN# 0.04 X1000 (0.0-0.04); IMM GRAN% 0.4 % (0.0-0.5); LYMPH# 1.82 X1000 (1.2-3.4); LYMPH% 17.7 % (20.5-51.1); MCH 26.4 PG (27-31); MCHC 32.4 g/dL (33-37); MCV 81.6 FL (81-99); MONO% 7.8 % (1.7-9.3); MPV 8.4 FL (7.4-10.4); NEUT# 7.31 X1000 (1.4-6.5); NEUT% 71.1 % (42.2-75.2); PLT 357 X1000 (130-400); RDW 14.3 % (11.5-14.5); WBC 10.28 X1000 (4.8-10.8)
--- NOTE | 2019-11-11 07:33 | ORTHOPAEDICS CONSULTATION ---
DATE: 11/11/2019 CHIEF COMPLAINT: Right leg weakness. HISTORY OF PRESENT ILLNESS: Ms. Norwood is a 68-year-old female who was admitted last night. Over the past 2 days she has had 2 falls. This all started about 2 days ago when she said her right leg just stopped working well, and ultimately she had 2 falls. She was taken to the emergency department twice. They did a workup and then discharged her home. Unfortunately, she was not able to do well at home as far as mobilization and kept falling because of her right lower extremity, and so she was admitted per the hospitalist service. PAST MEDICAL HISTORY: Coronary artery disease, hypertension, diabetes that is uncontrolled, sleep apnea. PAST SURGICAL HISTORY: Hysterectomy, cholecystectomy, cardiac stents, knee scope. SOCIAL HISTORY: She lives with her . She denies any alcohol or tobacco use. MEDICATIONS: Per the medical record. ALLERGIES: Her allergies are to Rocephin, codeine, iodine, and sulfa. REVIEW OF SYSTEMS: Positive for this right leg weakness and swelling. PHYSICAL EXAMINATION: General: Ms. Norwood was lying in her bed this morning, not really complaining of any pain this morning, and she is in no acute distress. HEENT and Neck: Head and neck, normocephalic and atraumatic. Respirations: Nonlabored breathing. Cardiovascular: Regular rate. Abdomen: Nondistended. Extremities: Right lower extremity exam, right lower extremity is edematous, especially compared to the left side. Palpating the hip, knee, and ankle did not elicit really any tenderness to palpation. She is able to perform a straight leg raise, but it is slow, and she does have a little bit of weakness there, seems about 4/5 on quadriceps strength and hip flexor strength. No skin ulcerations or abrasions seen. Left lower extremity exam, she is able to perform a straight leg raise on that side very well. No tenderness to palpation at the knee, leg, or ankle. RADIOGRAPHS: Bilateral hip films show good alignment. No fracture seen. Right knee x-rays show a little bit of degenerative changes, but no fracture seen. ASSESSMENT: 1. Right lower extremity weakness. 2. Right lower extremity lymphedema. PLAN: I am going to order an ultrasound to look for a DVT. Ms. Norwood, she does have swelling on this right side that is not present on the left lower extremity. It sounds like they are working her up for possible TIA. She has had a head CT that showed some chronic microvascular changes. No acute findings. Carotid ultrasound has been ordered as well. We will rule out DVT in right lower extremity. She is going to start working with physical therapy. Physical therapy has been ordered, working to get this right lower extremity stronger, and we will continue to follow. cc: MD Oskar Schneider MD
[2019-11-11 07:43] LABS: HEMOGLOBIN A1C 8.2 % (4.8-6.0)
[2019-11-11 08:02] LABS: AGAP 13; ALB/GLOB RATIO 0.8; ALBUMIN 2.9 g/dL (3.5-5.0); ALKALINE PHOSPHATASE 81 U/L (32-104); BUN 19 mg/dL (8-22); CHLORIDE 97 mmol/L (98-107); CHOLESTEROL 166 mg/dL (0-200); COSMO 276; CREATININE 1.1 mg/dL (0.5-0.9); ESTIMATED GFR 49; GLUCOSE 159 mg/dL (70-104); GOT 13 U/L (10-30); GPT 13 U/L (10-36); HDL 34 mg/dL (45-65); LDL 103 mg/dL; MAGNESIUM 1.7 mg/dL (1.5-2.7); POTASSIUM 4.2 mmol/L (3.5-5.1); SODIUM 135 mmol/L (136-145); TCO2 25 mmol/L (25-35); TOTAL BILIRUBIN 0.31 mg/dL (0.20-1.00); TOTAL PROTEIN 6.7 g/dL (6.3-8.3); TRIGLYCERIDES 143 mg/dL (35-135); VLDL 29 mg/dL
[2019-11-11 08:17] LABS: FREE T4 1.27 ng/dL (0.93-1.70)
--- NOTE | 2019-11-11 08:21 | Diag Imaging Result Doc PS360 ---
EXAM: ANKLE 2 VIEWS RIGHT 11/11/2019 HISTORY: MD ordered TECHNIQUE: Right ankle two views COMMENT: There is generalized soft tissue swelling, subcutaneous edema, over the lower leg. There is no evidence of fracture or dislocation. No periosteal reaction or erosion is present. There are large dorsal and plantar calcaneal spurs. IMPRESSION: No acute bony abnormality. Electronically signed by Jj Recio 11/11/2019 8:18 AM
--- NOTE | 2019-11-11 08:21 | Diag Imaging Result Doc PS360 ---
EXAM: FOOT 2 VIEWS RIGHT 11/11/2019 HISTORY: MD Ordered TECHNIQUE: Portable foot two views COMMENT: There are dorsal and plantar calcaneal spurs. There is generalized subcutaneous edema. There is no evidence of fracture or dislocation. No periosteal reaction or erosion is evident. IMPRESSION: No acute bony abnormality. Subcutaneous edema. Electronically signed by Jj Recio 11/11/2019 8:19 AM
[2019-11-11] MEDS ORDERED: ASPIRIN PO SCH (09:00)
[2019-11-11] MEDS: COREG PO SCH ×2 (10:25→20:59)
[2019-11-11] MEDS: EFFIENT PO SCH (10:25)
[2019-11-11] MEDS: KLOR-CON PO SCH (10:25)
[2019-11-11] MEDS: CYMBALTA PO SCH (10:25)
[2019-11-11] MEDS: COZAAR PO SCH (10:26)
[2019-11-11] MEDS: LANTUS INSULIN SUBQ SCH ×2 (10:26→21:01)
[2019-11-11] MEDS: LASIX IV SCH ×2 (10:26→21:00)
[2019-11-11] MEDS: KENALOG 0.1% CREAM TOP SCH ×2 (10:27→21:14)
[2019-11-11] MEDS: VITAMIN D PO SCH ×2 (10:33→10:34)
--- NOTE | 2019-11-11 10:56 | NEUROLOGY CONSULTATION ---
DATE: 11/11/2019 Ms. Norwood is 68 years old and she has right-sided weakness. History from the patient is that she was in her usual state of health Saturday, 3 days ago. Saturday, she noticed difficulty with gait, specifically dragging her right foot. She fell twice on Saturday. She cannot provide specific details now regarding those falls. She believes she bumped her head lightly once and did not hit her head with the other fall. She is certain there was no serious head injury. She believes there was never altered consciousness, altered awareness, memory gap. She had emergency room evaluation including noncontrast CT of the head showing old changes but nothing focal or acute. She was discharged home. She continued to have difficulty with right leg and gait, returned and was admitted. Workup includes blood sugars 100s- 200s. A1c was 8.2%. Sodium 135. B12, TSH, free T4 were all normal. Chemistry was otherwise unremarkable. There was noncontrast CT of the head 11/09/2019 unremarkable as above. She has had orthopedic evaluation and DVT workup ordered. Hospital computer record shows June, admission with altered mental state associated with systolic blood pressure 190s and urine infection. Past history is remarkable for diabetes mellitus type 2, hypertension, ischemic heart disease, thyroid disease, recurrent UTI. She reports taking medicine for management of cholesterol in the past and she believes that was associated with muscle soreness, so was not continued. She believes she does not take medicine for cholesterol now and her admission lipid profile showed triglycerides 143, total cholesterol 166, LDL 103, VLDL 29, HDL 34. She has 13 medications listed on the home medicines in computer. She cannot name all of these. She told me she takes them as directed but sometimes has trouble remembering whether she took a dose or not. She believes the insulin is most important and if she cannot remember whether she has used that or not, she checks her sugar and she thinks if her sugar is not too high, she must have taken the dose. She does not have medication supervision. Of her listed medicines, I see only duloxetine as likely having significant [employer]NAGER [employer]ER[employer]Y effect. She denies illicit drug use. On exam, she is awake, alert, attentive, appropriate. Speech is not significantly dysarthric. Language function is intact on bedside testing. Recent and remote memory are good. She was oriented to all parameters, except she missed the day of the month by just one. She discussed recent news with accurate detail. She scored 28 out of 30 on bedside cognitive testing. She registered 3 items and recalled 2 of 3 items at 10 minutes. She quickly picked the third item correctly from a multiple choice list. Head is unremarkable. Neck is supple. Visual thomas are full to confrontational finger counting. Extraocular movements are good. Facial motility is symmetric. Facial sensation is intact. Gag is intact. Tongue is midline. She can hear. Shoulder shrug is a little bit diminished on the right. She has normal strength in the left arm and leg. On the right, I can overcome the arm at the deltoid grading 4/5, wrist extensor 4+/5, iliopsoas 4/5, anterior tibialis 4+/5. Tone is increased in the right arm. She did rapid alternating movements a little better with her dominant left hand than with the right. She did well on [id number] testing with the left hand and had a little bit of trouble with right [id number]. She reports symmetric pinprick appreciation over the hands. She reports diminished pinprick appreciation in a stocking pattern bilaterally and she reports slightly more dense pinprick deficit over the right leg than the left. Proprioception is good at the great toe MTP joint bilaterally. Reflexes are absent at the knees and ankles bilaterally, 1+ symmetrically at the wrists. I did not test her gait. IMPRESSION: 1. Right limb weakness. Pattern is difficult to be certain about but seems most likely upper motor neuron, right hemiparesis. She has risk factors for cerebrovascular ischemic problems. This may be a nondominant left hemisphere event. Negative CT 2 days ago, within hours of onset, would not necessarily exclude acute ischemic stroke. I discussed the MRI and she is reluctant to proceed. Therefore, we will start with repeat noncontrast CT and then make further decisions. 2. There is clinical evidence of peripheral neuropathy, presumed diabetic neuropathy. This confounds the other findings on exam and would contribute to gait difficulty. 3. Proximal right leg weakness raises question of diabetic radiculitis but she reports her blood sugars have been pretty well-controlled. 4. Right arm weakness could be musculoskeletal, shoulder joint etiology if not due to hemiparesis. She reports not noticing nondominant right arm weakness. Further plans will depend on the CT report and on her clinical course. Thanks for asking neurology to see Ms. Norwood. cc: MD Oskar Baldwin III, MD MTDD
--- NOTE | 2019-11-11 13:09 | Diag Imaging Result Doc PS360 ---
EXAM: CHEST-PORTABLE 11/11/2019 HISTORY: rehab bed placement TECHNIQUE: AP portable semiupright at 1258 COMMENT: The appearance of the chest has not changed significantly since 11/09/2019. There may be some platelike atelectasis in the left base. IMPRESSION: Lingular and left lower lobe subsegmental atelectasis. Electronically signed by Jj Recio 11/11/2019 1:07 PM
--- NOTE | 2019-11-11 13:15 | Diag Imaging Result Doc PS360 ---
EXAM: CT HEAD W/O CONTRAST 11/11/2019 HISTORY: right sided weakness TECHNIQUE: This exam was performed using automated exposure control, adjustment of mA or kV according to patient size, and/or use of iterative reconstruction technique. COMMENT: There is a small amount of fluid in the left maxillary sinus is or was on 11/09/2019. There is opacification of the left sphenoid sinus and mucosal thickening and fluid in the ethmoid air cells and left frontal sinus. There is no evidence of intracranial mass effect bleed or abnormal extra-axial fluid collection. There are abnormal lucencies in the thalami particularly the left thalamus and in a ill-defined patchy distribution in the white matter of both hemispheres. Compared to the previous study the lucency in the left thalamus is more clearly defined. IMPRESSION: Evolving lacunar infarction in the left thalamus and adjacent posterior internal capsule. Electronically signed by Jj Recio 11/11/2019 1:13 PM
[2019-11-11] MEDS: LEVAQUIN 750 MG in NS 150 ML IV SCH (15:18)
--- NOTE | 2019-11-11 20:23 | Carotid Study ---
DATE: 11/11/2019 REFERRING PHYSICIAN: Oskar Brothers MD READING PHYSICIAN: Jarred Koenig MD PEARL RESTORER: [place]. INDICATION: Right-sided weakness. FINDINGS: There is a relatively small amount of plaque at the takeoff of the internal carotid arteries bilaterally without corresponding elevated velocities or turbulent flow. There is antegrade vertebral flow bilaterally. Percent stenosis 0% to 39% bilaterally. INTERPRETATION: Mild atherosclerotic disease as described above, which is not hemodynamically significant. cc: MD Oskar Poole MD
--- NOTE | 2019-11-11 20:33 | Extremity Venous Study ---
PROCEDURE NAME: Venous U/S Bilateral Legs - 11/11/2019 REFERRING PHYSICIAN: Juve Soares MD READING PHYSICIAN: Jarred Koenig MD OPERATING COST CLERK: [place]. INDICATION: Leg swelling. FINDINGS: The deep and superficial veins of both lower extremities were imaged throughout their course. They are compressible, patent without thrombus. INTERPRETATION: No deep venous thrombosis or superficial venous thrombosis of either lower extremity. This is unchanged from the prior study on 10/01/2018. cc: MD Juve Poole MD Bharat K. Vakharia, MD
[2019-11-12] MEDS: SYNTHROID PO SCH (06:36)
[2019-11-12] MEDS: HUMALOG SUBQ SCH ×7 (06:37→22:24)
[2019-11-12] MEDS: EFFIENT PO SCH (09:00)
[2019-11-12] MEDS: COREG PO SCH ×2 (09:00→22:22)
[2019-11-12] MEDS: COZAAR PO SCH (09:00)
[2019-11-12] MEDS: ASPIRIN PO SCH (09:00)
[2019-11-12] MEDS: CYMBALTA PO SCH (09:00)
[2019-11-12] MEDS: KENALOG 0.1% CREAM TOP SCH ×2 (09:01→22:22)
[2019-11-12] MEDS: KLOR-CON PO SCH (09:01)
[2019-11-12] MEDS: LASIX IV SCH ×2 (09:02→22:22)
[2019-11-12] MEDS: LANTUS INSULIN SUBQ SCH ×2 (09:06→22:24)
[2019-11-12] MEDS: VITAMIN D PO SCH (09:12)
--- NOTE | 2019-11-12 11:04 | ORTHOPAEDICS PROGRESS NOTE ---
DATE: 11/12/2019 SUBJECTIVE DATA: Ms. Pendleton is lying in bed. She states her pain is overall better. She does complain of some muscle spasms of this right leg last night. She says her overall swelling and redness looks better. OBJECTIVE DATA: Right lower extremity exam: She still has quite a bit of edema to this right side especially compared to the left side. She is able to dorsi and plantar flex the foot as well as do a straight leg raise. It is a little slow on this side. She says it is not painful, it is just difficult to do. She does have some erythema to that lower extremity as well. ASSESSMENT: 1. Right lower extremity weakness. 2. Right lower extremity lymphedema. PLAN: Her DVT was negative. We will see if we can start some lymphedema treatments. She feels like things are improving on this side. We will also get Physical Therapy to work with her. We will see if she continues to improve over the next few days. Dictated by THANIA Serrano for Juve Soares MD cc: THANIA Serrano MD Bharat K. Vakharia, MD
[2019-11-12] MEDS: LEVAQUIN 750 MG in NS 150 ML IV SCH (13:16)
[2019-11-12] MEDS ORDERED: CALMOSEPTINE OINTMENT TOP PRN (13:18)
--- NOTE | 2019-11-12 14:20 | NEUROLOGY PROGRESS NOTE ---
DATE: 11/12/2019 SUBJECTIVE: Ms Norwood reports some improvement in her right-sided weakness. She has not noticed any new problems. Systolic blood pressures have ranged 130s-170s. She continues afebrile. Blood sugars are mid 200s today. No other new chemistry report today. Carotid ultrasound yesterday showed mild atherosclerotic disease, but no hemodynamically significant stenosis bilaterally. Ultrasound on the legs was negative for DVT. CT scan of the head yesterday showed more prominent lucency in the left thalamus consistent with recent infarction. Management of lymphedema has begun. I do not have any new thoughts or new suggestions from Neurology standpoint today. She presented with mild right hemiparesis with relatively pure motor deficit, and there is CT evidence of subacute left thalamic lacunar infarction to account for that deficit. I encouraged her to be aggressive with management of her risk factors. At this point, in light of the stable course, small infarction, multiple risk factors, I believe we can treat blood pressure, continue to treat lipids and blood sugar aggressively, continue aspirin. Thanks for asking Neurology to see Ms. Norwood. cc: MD Oskar Baldwin III, MD MTDD
[2019-11-12] MEDS ORDERED: LIPITOR PO SCH (21:00)
[2019-11-13] MEDS: SYNTHROID PO SCH (06:13)
[2019-11-13] MEDS: HUMALOG SUBQ SCH ×4 (06:14→11:21)
--- NOTE | 2019-11-13 06:47 | DISCHARGE SUMMARY ---
ADMISSION DATE: 11/10/2019 DISCHARGE DATE: FINAL DISCHARGE DIAGNOSES: 1. Lacunar infarct involving left thalamus and adjacent posterior internal capsule with right- sided weakness. 2. Longstanding uncontrolled diabetes mellitus complicated by peripheral neuropathy. 3. Hypertension. 4. Recurrent sinusitis. 5. Morbid obesity. 6. Osteoarthritis. 7. Depression. 8. Coronary artery disease. 9. Gastritis and reflux disease. 10. History suggestive of sleep apnea, not using CPAP. 11. Vitamin D deficiency. 12. Leg swelling. 13. Hypothyroidism. HISTORY OF PRESENT ILLNESS: Ms. Norwood is a 68-year-old white female patient with multiple medical problems, had a fall at home, not able to get up, even with the help of family. EMT were called. The patient was brought to the emergency room, evaluated by ER physician. Her initial CT scan was negative. The patient found to have a UTI. The patient was given Macrobid. After going home, it took much longer for family member to get her inside the house. While going to bathroom the patient fell again. The patient did have some weakness right upper and lower limbs, lack of coordination. Patient was brought to the ER again. That time patient was told to have bruised the knee and patient was sent back home. It was very hard for family to manage patient at home. The patient was developing some weakness and lack of coordination right upper limb also. They called me. I sent patient to the ER again. Repeat CT scan was still negative, but because of UTI, right-sided weakness, I decided to admit the patient. The rest of the information from admission history and physical. The patient is vague and poor historian. The patient does have history of recurrent sinus infection. HOSPITAL COURSE: Patient was admitted to telemetry bed. Neurology consult obtained. Dr. Juares evaluated the patient. The patient had repeat CT scan done which did reveal evolving lacunar infarct in the left thalamus and adjacent posterior internal capsule. Patient was on 81 mg of aspirin which I increased to 325. Patient is on Effient which we continued. Because of the bruised knee and ankle pain, I did Orthopedic consult. Her x-ray did not reveal any fracture. The patient will need physical therapy and we decided to send her to rehab place. I did COVID-19 test and it was negative. PHYSICAL EXAMINATION: Her vital signs noted. Neck is supple. No JVD. Lungs: Bilateral good air entry present. CVS: S1 and S2 heard. Abdomen: Soft, globular. Bowel sounds present. HEALTHCARE LIAISON: Alert, awake. Answering questions fair. LABORATORY DATA: Her urine culture was negative. Last hemoglobin 13.2, hematocrit 40.8, WBC count 10.28, platelet count 357,000. Electrolytes were fairly benign. BUN 19, creatinine 1.1. Lipid panel results reviewed, total cholesterol 166, LDL 103. The patient was started on Lipitor 20 mg p.o. p.m. TSH 4, free T4 of 1.27. Urinalysis revealed too numerous to count WBC. That was done on November 08. Urine culture was negative. COVID-19 test was negative. Overall discharge condition satisfactory. I cut back her home dose of insulin, watch for hypoglycemia. Fall precautions. If needed, will gradually advance her insulin. I am discharging patient on Levaquin. Watch for hypoglycemia. Overall discharge plan discussed with the patient and her family yesterday. After discharge the patient will be followed up by Dr. Brothers. Discharge orders as per separate sheet. cc: Oskar Brothers MD
[2019-11-13] MEDS: CYMBALTA PO SCH (08:17)
[2019-11-13] MEDS: LANTUS INSULIN SUBQ SCH (08:17)
[2019-11-13] MEDS: ASPIRIN PO SCH (08:18)
[2019-11-13] MEDS: VITAMIN D PO SCH (08:18)
[2019-11-13] MEDS: LASIX IV SCH (08:18)
[2019-11-13] MEDS: COREG PO SCH (08:18)
[2019-11-13] MEDS: EFFIENT PO SCH (08:18)
[2019-11-13] MEDS: COZAAR PO SCH (08:18)
[2019-11-13] MEDS: KENALOG 0.1% CREAM TOP SCH (08:18)
[2019-11-13] MEDS: KLOR-CON PO SCH (08:19)
[2019-11-13 11:35] VITALS: BP 146/74
== END 2019-11-13 13:00 | DRG 65 ==
LOC: SUPCPDRO → ED 10:44 → 3N 13:08
PROVIDERS: ADMIT Internal Medicine; ATTEND Internal Medicine